=== PATIENT | male | born 1940 | race Caucasian/White ===

== ENCOUNTER 2019-07-23 12:53 | Outpatient (CLI) | payer MEDICARE, SELFPAY ==
--- NOTE | 2019-07-23 13:06 | USCV_ITS ---
Rodolfo Sethi Age: 79 Gender: M : 1940 Exam Date: 07/23/2019 13:34 Ordering Phys: Marcio Nunes MD Technologist: Madison Valenzuela Exam Location: [facility] [place] Indication: AFIB MURMUR BP: 115 / 63 HR: 72 Rhythm: Sinus Technical Quality: Adequate MEASUREMENTS (Male / Female) Normal Values 2D ECHO LV Diastolic Diameter PLAX 4.6 cm 4.2 - 5.9 / 3.9 - 5.3 cm LV Systolic Diameter PLAX 3.2 cm LV Chamber Size 3.0 cm IVS Diastolic Thickness 1.7 cm 0.6 - 1.0 / 0.6 - 0.9 cm IVS Systolic Thickness 2.2 cm LVPW Diastolic Thickness 2.2 cm 0.6 - 1.0 / 0.6 - 0.9 cm LVPW Systolic Thickness 2.3 cm RV Chamber Size 3.5 cm LVOT Diameter 2.1 cm LV Ejection Fraction 2D Teich 57.9 % LV Ejection Fraction MOD 2C 66.4 % LV Ejection Fraction 2C AL 68.7 % LA Diameter 4.3 cm LA Width 4.2 cm LA Height 6.3 cm RA Width 4.7 cm RA Height 5.0 cm Aorta at Sinotubular Diameter 3.3 cm M-MODE LV Diastolic Diameter MM 5.3 cm 4.2 - 5.9 / 3.9 - 5.3 cm LV Systolic Diameter MM 3.6 cm LV Ejection Fraction MM Teich 58.9 % IVS Diastolic Thickness MM 1.0 cm 0.6 - 1.0 / 0.6 - 0.9 cm IVS Systolic Thickness MM 1.2 cm LVPW Diastolic Thickness MM 1.1 cm 0.6 - 1.0 / 0.6 - 0.9 cm LVPW Systolic Thickness MM 1.6 cm Aortic Annulus Diameter 4.6 cm LA Ao Ratio MM 0.9 MV E Point Septal Separation 1.1 cm DOPPLER AV Peak Velocity 266.0 cm/s LVOT Peak Velocity 104.0 cm/s AV Area Cont Eq vti 1.5 cm squared AV Area Cont Eq pk 1.3 cm squared MV Area PHT 3.0 cm squared Mitral E to A Ratio 1.1 MV E' Velocity 9.0 cm/s Mitral E to MV E' Ratio 12.3 Mitral E to LV E' Lateral Ratio 10.8 Mitral E to LV E' Septal Ratio 14.4 TR Peak Velocity 285.0 cm/s TR Peak Gradient 32.4 mmHg TV Peak E Velocity 48.0 cm/s Right Atrial Pressure 3.0 mmHg Pulmonary Artery Systolic Pressu 35.5 mmHg PV Peak Velocity 96.0 cm/s RV Acceleration Time 0.1 s RV Ejection Time 0.3 s RV AcT/ET 0.4 FINDINGS Left Ventricle Normal left ventricular cavity size. Normal left ventricular systolic function. Left ventricular ejection fraction is estimated at 58 %. No regional wall motion abnormalities. Grade II/IV diastolic dysfunction, moderately elevated filling pressures. Right Ventricle The right ventricle is normal in size and function. Right Atrium The right atrium is normal in size. Left Atrium Moderately increased left atrial size. Mitral Valve Moderately thickened mitral valve. No mitral valve stenosis. No mitral valve regurgitation. Aortic Valve Severe aortic valve calcification. Moderate aortic valve stenosis, mean gradient 9.8 mmHg, ALEJANDRO 1.5 cm squared. Trace aortic valve regurgitation. Tricuspid Valve Trace tricuspid valve regurgitation. Pulmonic Valve Structurally normal pulmonic valve without significant stenosis. There is no pulmonic regurgitation. Pericardium Normal pericardium without effusion. Aorta Normal ascending aorta dimension. CONCLUSIONS 1-Normal left ventricular cavity size. Normal left ventricular systolic function. Left ventricular ejection fraction is estimated at 58 %. No regional wall motion abnormalities. Grade II/IV diastolic dysfunction, moderately elevated filling pressures. 2-Severe aortic valve calcification. Moderate aortic valve stenosis, mean gradient 9.8 mmHg, ALEJANDRO 1.5 cm squared. Trace aortic valve regurgitation. 3-Moderately increased left atrial size. 4-Pulmonary artery systolic pressure is within normal limits. 5-There is no pericardial effusion. 6-Right atrial pressure is around 5 mm of mercury. 7-There are no prior echocardiogram studies to compare. Iliana Ricci MD (Electronically Signed) Final Date: 23 July 2019 18:47 S
== END 2019-07-23 12:54 | disposition home or self-care (01) ==
LOC: RAD 12:56
PROVIDERS: Family Provider Family Medicine; Visit Provider Family Medicine
DX: I48.91 Unspecified atrial fibrillation (principal); I35.0 Nonrheumatic aortic (valve) stenosis; I51.7 Cardiomegaly; R01.1 Cardiac murmur, unspecified
CPT/HCPCS: 93306

== ENCOUNTER 2019-12-03 05:42 | Observation (INO) | payer MEDICARE, SELFPAY ==
[2019-12-03] VITALS (53 sets, daily range): BP systolic 82–128; BP diastolic 57–109; PULSE 80–151; RESP 10–33; TEMP 36.4–36.7; O2SAT 91–99; BMI 26.2
--- NOTE | 2019-12-03 05:44 | XR_ITS ---
WS: [id number] Portable AP upright chest, 12/03/2019 Clinical Data: cp Comparison: None. Findings: No nodules, masses or effusions are seen. The heart is normal. The pulmonary vascularity is not increased. No pneumonia or pneumothorax is seen. The aortic arch and descending aorta are tortuo us. Midline sternotomy sutures are present. Monitor leads are on the chest wall. XR/XR chest 1V portable [id number] Impression: Atherosclerosis.
--- NOTE | 2019-12-03 05:44 | ECG_ITS ---
[facility] Test Date: 2019-12-03 Pat Name: Rodolfo Sethi Department: Room: Gender: Male Branch Office Administrator: : 1940 Requested By: Chito Lopez Order Number: [id number] Sergey MD: Fabiola Hartmann M.D. Measurements Intervals [place] Rate: 137 P: [place]: -1 QRS: -25 QRSD: 157 T: 56 QT: 344 QTc: 520 Interpretive Statements ATRIAL FIBRILLATION WITH RAPID VENTRICULAR RESPONSE BORDERLINE LEFT AXIS DEVIATION [QRS AXIS < -20] RIGHT BUNDLE BRANCH BLOCK [120+ ms QRS DURATION, UPRIGHT V1, 40+ ms S IN I/aVL/V4/V5/V6] ST DEPRESSION, CONSIDER SUBENDOCARDIAL INJURY [0.1+ mV ST DEPRESSION] No previous ECG available for comparison Electronically Signed On 12-03-2019 18:00:25 CDT by Fabiola Hartmann M.D. [email or web address] [email or web address].BizAnytime/store/[id number] f
[2019-12-03] MEDS: aspirin 81 mg Chew Tablet 324 MG PO (05:56)
[2019-12-03 05:58] LABS: Basophils # 0.1 10^3/uL (0.0-0.1); Basophils % 0.8 %; Eosinophils # 0.6 10^3/uL (0.0-0.8); Eosinophils % 4.7 %; Hematocrit 44.3 % (42.0-52.0); Hemoglobin 14.7 g/dL (11.7-16.6); Lymphocytes # 2.7 10^3/uL (0.8-4.8); Lymphocytes % 22.7 %; Mean Corpuscular HGB Conc 33.2 g/dL (30.0-36.0); Mean Corpuscular Volume 99.3 fL (80-94); Mean Platelet Volume 9.1 fL (7.4-10.4); Monocytes # 1.1 10^3/uL (0.2-0.9); Monocytes % 9.1 %; Neutrophils % 62.4 %; Nucleated Red Blood Cells % 0 %; Platelet Count 592 10^3/cmm (130-400); Red Blood Count 4.46 10^6/uL (4.1-5.3); Red Cell Distribution Width 11.9 % (12.1-15.1)
--- NOTE | 2019-12-03 06:04 | ED_ITS ---
HPI - Chest Pain General: Chief Complaint: Chest Pain Stated Complaint: cp, weak pulse Time Seen by Provider: 12/03/19 06:00 History of Present Illness: HPI narrative: 79-year-old male presents to the emergency room with a complaint of chest discomfort and rapid heart rate. 2 weeks ago patient had a coronary artery bypass graft at [facility] in [place]. He has had history of atrial fibrillation is on Coumadin. He also has headache Rythmol for rate control. He is taking all his medications as scheduled has not run out of any medications. He has a long history of atrial fibrillation he has had several cardioversions and ablations since the last ablation he said the rate has been fairly well controlled. The chest discomfort is not anything new he says he has had multiple aches and pains in his chest since having the bypass. he woke up at midnight with this pain he did have to take some pain medications which only provided moderate relief. His A. fib became somewhat worse so he presented to the emergency room at the time of presentation he still has a right-sided chest pain heart rates in the 140s. MD complaint: chest pain and chest discomfort Pertinent past history: coronary artery disease Onset (ago): hour(s) Timing of current episode: constant Prior episodes: Yes Onset: during rest Pain location: right chest Pain radiation: right shoulder Quality: tightness Relieving factors: rest Exacerbating factors: exertion Associated symptoms: Reports dyspnea and palpitations; Deny abdominal pain, diaphoresis, fever(s), leg edema, nausea, sense of impending doom, syncope or vomiting Treatment prior to arrival: none Review of Systems Const: Denies: fever(s) or diaphoresis ENMT: Denies: throat pain, ear or mastoid pain, nasal discharge or nasal congestion Card: Reports: palpitations; Denies: syncope Resp: Reports: dyspnea GI: Denies: abdominal pain, nausea or vomiting : Denies: flank pain, dysuria, urinary frequency or urinary urgency Skin/Breast: Denies: rash or pruritus [facility] ED PFSH: Medical History Dyslipidemia Surgical History S/P ablation of atrial fibrillation Physical Exam Const: COMMON NORMALS: no acute distress GENERAL APPEARANCE: cooperative and comfortable ORIENTATION/CONSCIOUSNESS: Yes awake, Yes oriented to person, Yes oriented to place and Yes oriented to time HENMT: COMMON NORMALS: normocephalic, atraumatic and hearing grossly normal bilaterally HEAD & SCALP: normocephalic and atraumatic Resp: COMMON NORMALS: normal respiratory effort, No retractions, No use of accessory muscles and clear to auscultation bilaterally AUSCULTATION: clear to auscultation bilaterally Cardio: RATE: tachycardic RHYTHM: abnormal rhythm irregularly irregular GI: COMMON NORMALS: Soft to palpation and No hepatosplenomegaly present AUSCULTATION: Yes normoactive bowel sounds PALPATION: Yes Soft to palpation, No Tenderness to palpation present (GI), No Guarding due to palpation present (GI) and Yes No hepatosplenomegaly present Extremity: COMMON NORMALS: normal to inspection, capillary refill normal, no clubbing, cyanosis or edema, no calf tenderness and no pedal edema Neuro: SENSORIUM/ORIENTATION: Yes oriented to person, Yes oriented to place and Yes oriented to time Skin: COMMON NORMALS: no rashes or lesions noted GENERAL SKIN EXAM: no rashes or lesions noted Course Vital Signs: Vital signs: Vital Signs Temperature 97.7 F 12/04/19 10:40 Pulse Rate 74 12/04/19 10:40 Respiratory Rate 25 H 12/04/19 10:40 Blood Pressure 111/67 12/04/19 10:40 Pulse Oximetry 95 12/04/19 10:40 MDM - Chest Pain MDM Narrative: Medical decision making narrative: Rate controlled on IV Cardizem but has not converted. Patient initially asked about transferring back to [facility] we contacted his cardiothoracic surgeon there they did not feel it returning to [facility] was necessary and follow could be handled here which I agree with. Discussed with cardiology will go ahead and admit the patient and work on rate control. Lab Data: Labs: Lab Results 12/03/19 12/03/19 12/03/19 Range/Units 05:50 05:50 05:50 WBC 12.0 H (4.0-10.0) 10^3/ uL RBC 4.46 (4.1-5.3) 10^6/u L Hgb 14.7 (11.7-16.6) g/dL Hct 44.3 (42.0-52.0) % MCV 99.3 H (80-94) fL MCH 33.0 (28.0-34.0) pg MCHC 33.2 (30.0-36.0) g/dL RDW 11.9 L (12.1-15.1) % Plt Count 592 H (130-400) 10^3/c mm MPV 9.1 (7.4-10.4) fL Neut % (Auto) 62.4 % Lymph % (Auto) 22.7 % Coles % (Auto) 9.1 % Eos % (Auto) 4.7 % Baso % (Auto) 0.8 % Neut # (Auto) 7.50 (1.8-7.7) 10^3/u L Lymph # (Auto) 2.7 (0.8-4.8) 10^3/u L Coles # (Auto) 1.1 H (0.2-0.9) 10^3/u L Eos # (Auto) 0.6 (0.0-0.8) 10^3/u L Baso # (Auto) 0.1 (0.0-0.1) 10^3/u L Nucleated RBC % (a uto) 0 % Nucleated RBCs # 0.0 /100WBC PT 25.90 H (12.1-14.9) SECO NDS INR 2.27 H (0.8-1.2) Sodium 135 L (136-145) mmol/L Potassium 4.1 (3.5-5.1) mmol/L Chloride 99 (98-107) mmol/L Carbon Dioxide 23 (22-29) mmol/L Anion Gap 17.1 (5-19) BUN 21 (8-23) mg/dL Creatinine 1.1 (0.7-1.2) mg/dL GFR Calculation Not Reportable Glucose 136 H (65-115) mg/dL Calculated Osmolal ity 285 (285-295) mOsm/k g Calcium 10.0 (8.5-10.5) mg/dL Total Bilirubin 0.5 (0.15-1.2) mg/dL AST 18 (0-40) U/L ALT 9 (0-41) U/L Alkaline Phosphata se 107 (40-130) IU/L Troponin T Baselin e (0-15) ng/L Troponin T 120 Min [place] (0-15) ng/L Delta Troponin T (0-10) ABS# Total Protein 7.0 (6.6-8.7) g/dL Albumin 3.7 (3.5-5.2) g/dL Globulin 3.3 (1.3-4.6) g/dL 12/03/19 12/03/19 Range/Units 05:50 08:08 WBC (4.0-10.0) 10^3/ uL RBC (4.1-5.3) 10^6/u L Hgb (11.7-16.6) g/dL Hct (42.0-52.0) % MCV (80-94) fL MCH (28.0-34.0) pg MCHC (30.0-36.0) g/dL RDW (12.1-15.1) % Plt Count (130-400) 10^3/c mm MPV (7.4-10.4) fL Neut % (Auto) % Lymph % (Auto) % Coles % (Auto) % Eos % (Auto) % Baso % (Auto) % Neut # (Auto) (1.8-7.7) 10^3/u L Lymph # (Auto) (0.8-4.8) 10^3/u L Coles # (Auto) (0.2-0.9) 10^3/u L Eos # (Auto) (0.0-0.8) 10^3/u L Baso # (Auto) (0.0-0.1) 10^3/u L Nucleated RBC % (a uto) % Nucleated RBCs # /100WBC PT (12.1-14.9) SECO NDS INR (0.8-1.2) Sodium (136-145) mmol/L Potassium (3.5-5.1) mmol/L Chloride (98-107) mmol/L Carbon Dioxide (22-29) mmol/L Anion Gap (5-19) BUN (8-23) mg/dL Creatinine (0.7-1.2) mg/dL GFR Calculation Glucose (65-115) mg/dL Calculated Osmolal ity (285-295) mOsm/k g Calcium (8.5-10.5) mg/dL Total Bilirubin (0.15-1.2) mg/dL AST (0-40) U/L ALT (0-41) U/L Alkaline Phosphata se (40-130) IU/L Troponin T Baselin e 27 H (0-15) ng/L Troponin T 120 Min [place] 36.21 H (0-15) ng/L Delta Troponin T 9.21 (0-10) ABS# Total Protein (6.6-8.7) g/dL Albumin (3.5-5.2) g/dL Globulin (1.3-4.6) g/dL Discharge Plan Discharge Patient Disposition: Admitted As Inpatient Admit Provider: Matty Salcedo Clinical Impression: Atrial fibrillation with rapid ventricular response, Atherosclerotic heart disease, Dyslipidemia, Chronic episodic atrial fibrillation Condition: Stable Discharge Date/Time: 12/03/19 12:25 Coding Level of Care Code ED Irrigation Pump Installer for Elizabeth Fwd Exam Detailed
[2019-12-03 06:12] LABS: INR 2.27 (0.8-1.2)
[2019-12-03 06:15] LABS: Alanine Aminotransferase 9 U/L (0-41); Albumin Level 3.7 g/dL (3.5-5.2); Alkaline Phosphatase 107 IU/L (40-130); Anion Gap 17.1 (5-19); Aspartate Amino Transferase 18 U/L (0-40); Blood Urea Nitrogen 21 mg/dL (8-23); Carbon Dioxide 23 mmol/L (22-29); Chloride 99 mmol/L (98-107); Creatinine Clr Calc Pharmacy 67.2739; Globulin 3.3 g/dL (1.3-4.6); Glucose 136 mg/dL (65-115); Osmolality Calculated 285 mOsm/kg (285-295); Potassium 4.1 mmol/L (3.5-5.1); Sodium 135 mmol/L (136-145); Total Bilirubin 0.5 mg/dL (0.15-1.2)
[2019-12-03 06:18] LABS: Troponin(5th) Baseline 27 ng/L (0-15)
[2019-12-03] MEDS: sodium chloride 0.9% 500 ML 999 ML IV ×2 (06:20→08:47)
--- NOTE | 2019-12-03 07:44 | ECG_ITS ---
[facility] Test Date: 2019-12-03 Pat Name: Rodolfo Sethi Department: Room: Gender: Male Chief Passenger Ship Steward/Stewardess: : 1940 Requested By: Chito Lopez Order Number: [id number] Sergey MD: Fabiola Hartmann M.D. Measurements Intervals [place] Rate: 119 P: ID: -1 QRS: -5 QRSD: 157 T: 29 QT: 369 QTc: 520 Interpretive Statements ATRIAL FIBRILLATION WITH RAPID VENTRICULAR RESPONSE RIGHT BUNDLE BRANCH BLOCK [120+ ms QRS DURATION, UPRIGHT V1, 40+ ms S IN I/aVL/V4/V5/V6] Compared to ECG 12/03/2019 05:44:54 ST (T wave) deviation no longer present Electronically Signed On 12-03-2019 18:18:16 CDT by Fabiola Hartmann M.D. [id number]
[2019-12-03] MEDS: esmolol drip 2,500 MG/250 ML PREMIX 28.6 MG IV (08:47)
[2019-12-03 08:55] LABS: Troponin 5 2HR 36.21 ng/L (0-15); Troponin 5 2HR Delta 9.21 ABS# (0-10)
--- NOTE | 2019-12-03 10:12 | ECG_ITS ---
[facility] Test Date: 2019-12-03 Pat Name: Rodolfo Sethi Department: Room: Gender: Male Microbiology Technician: : 1940 Requested By: Renzo Bates Order Number: [id number] Sergey MD: Fabiola Hartmann M.D. Measurements Intervals [place] Rate: 99 P: NC: -1 QRS: 12 QRSD: 158 T: 52 QT: 339 QTc: 436 Interpretive Statements ATRIAL FIBRILLATION RIGHT BUNDLE BRANCH BLOCK [120+ ms QRS DURATION, UPRIGHT V1, 40+ ms S IN I/aVL/V4/V5/V6] Compared to ECG 12/03/2019 08:03:11 No significant changes Electronically Signed On 12-03-2019 17:58:27 CDT by Fabiola Hartmann M.D. [id number] f
--- NOTE | 2019-12-03 11:06 | PC.NURSE ---
pt continues to be more hypotensive (82/58). ED provider notified. Esmolol drip off at 1100
--- NOTE | 2019-12-03 11:44 | ECG_ITS ---
[facility] Test Date: 2019-12-03 Pat Name: Rodolfo Sethi Department: Room: 101 Gender: Male Media Relations Intern: : 1940 Requested By: Chito Lopez Order Number: [id number] Sergey MD: Fabiola Hartmann M.D. Measurements Intervals [place] Rate: 124 P: [place]: -1 QRS: -11 QRSD: 152 T: 57 QT: 359 QTc: 516 Interpretive Statements ATRIAL FIBRILLATION WITH RAPID VENTRICULAR RESPONSE RIGHT BUNDLE BRANCH BLOCK [120+ ms QRS DURATION, UPRIGHT V1, 40+ ms S IN I/aVL/V4/V5/V6] Compared to ECG 12/03/2019 09:14:33 No significant changes Electronically Signed On 12-03-2019 18:10:28 CDT by Fabiola Hartmann M.D. [id number]
[2019-12-03] MEDS: digoxin 250 mcg/ml INJ 2 mL IVP ×2 (12:47→14:26)
--- NOTE | 2019-12-03 12:47 | PC.NURSE ---
FROM ER Afib w/rvr on 130s to 140s. Pt stated he has chest discomfort, dizziness when standing. Dr. Salcedo notified. Orders to give 250 mcg of IVP Digoxin now.
--- NOTE | 2019-12-03 12:48 | PC.NURSE ---
Pt verified that he took all his home meds Pt said, I took all the meds this morning. I asked him if he took his coumadin. Pt stated, I took my coumadin this morning too. Pt verified that he takes rhythmol 150 mg TID. Med rec verified.
--- NOTE | 2019-12-03 13:00 | PC.NURSE ---
From Er Pt is on afib w/rvr on 130s-140s. Pt reports of Chest pressure and dizziness when standing. BP- 90s to 100s systolic, normal MAP >65. DR. servin notified.
--- NOTE | 2019-12-03 13:08 | PM.HP ---
Providers/Chief Complaint Admitting Physician: Matty Salcedo MD Chief Complaint: cp, weak pulse History of Present Illness Rodolfo Sethi is a 79 year old male, is admitted to the hospital through the emergency room, where he presented with complaints of chest discomfort and palpitations since nursing technician today. Has a history of chronic intermittent atrial fibrillation. He had multiple cardioversions in the past. Approximately 4 years ago, he had second ablation. Since then, patient has not had any recurrence of atrial fibrillation up until this morning. According the patient, he had a two-vessel coronary artery bypass surgery in [facility] by Dr. Bolaños. Details of the surgery is not available at this time. Postoperatively patient was placed on propafenone and warfarin. Whether he had any atrial fibrillation in the hospital or not is not clear at this time. Per the patient, whenever he had the atrial fibrillation with rapid ventricular rate, he become dizzy and short of breath. He also had some discomfort in the chest. He has no fever, chills or cough. He was Covid tested negative few weeks ago prior to the open heart surgery. He has a history of dyslipidemia. No history for any hypertension or diabetes. According the patient, the first episode of atrial fibrillation happened after the PCI. He had a multiple PCI's in the past. He has no history for any CVA or peripheral arterial disease. No history for kidney disease, liver disease or bleeding disorders. He has a history of prostate cancer. No other relevant past medical history. Patient was found to be in atrial fibrillation with rapid ventricular rate in the emergency room. He was started on IV Cardizem. Apparently there was no response. Then he was started on IV esmolol. His blood pressure dropped down into the 80s. For that reason, the aspirin was discontinued. Review of Systems Narrative: CONSTITUTIONAL: No fever or chills. Feeling of weakness and shortness of breath since this morning as mentioned above. EYES: No blurring of vision or other visual disturbances lately. ENT: No hoarseness of voice, auditory disturbances or sore throat. CARDIOVASCULAR: As mentioned above. RESPIRATORY: Remote history of smoking abuse which he quit more than 30 years ago. GASTROINTESTINAL: No hematemesis or melena. GENITOURINARY: No dysuria or hematuria. INTEGUMENTARY: No skin rashes or history of skin cancer. NEURO: No transient ischemic attacks or amaurosis. PSYCHIATRIC: No history of psychosis or major depression. HEMATOLOGIC: No bleeding disorders or significant anemia. ENDOCRINE: No history of polyuria or polydipsia. MUSCULOSKELETAL: No recent joint pain or swelling. ALLERGY/IMMUNOLOGY: As mentioned above. Medications/Allergies Home Medications Medication Instructions Recorded Confirmed Last Taken Type aspirin 81 mg PO DAILY 12/03/19 12/03/19 12/03/19 History atorvastatin 10 mg PO DAILY 12/03/19 12/03/19 12/02/19 History furosemide 20 mg PO DAILY 12/03/19 12/03/19 12/02/19 History potassium chloride 20 meq PO DAILY 12/03/19 12/03/19 12/02/19 History propafenone 150 mg PO DAILY 12/03/19 12/03/19 12/03/19 History warfarin See Rx Instructions .ROUTE .COMPLEX 12/03/19 12/03/19 12/03/19 History Allergies Allergy/AdvReac Type Severity Reaction Status Date / Time No Known Allergies Allergy Verified 12/03/19 05:43 PFSH Acute PFSH: Medical History Dyslipidemia Surgical History S/P ablation of atrial fibrillation Vitals/I&O/Wt Last Vital Signs Temp 97.9 F 12/03/19 05:43 Pulse 118 H 12/03/19 11:00 Resp 23 H 12/03/19 11:00 BP 82/58 12/03/19 11:00 Pulse Ox 91 12/03/19 11:00 12/02/19 12/03/19 12/03/19 22:59 06:59 14:59 Intake Total 503.500 / 503.500 594.78 / 594.78 Balance 503.500 / 503.500 594.78 / 594.78 Weight last 48 hrs Weight 210 lb Physical Exam Narrative: EXAM NARRATIVE: GENERAL: The patient is alert and oriented times three. Not in any acute distress. HEENT: Mild pallor. No icterus or lymphadenopathy. The pupils are reactant to light. Oral cavity: There are no mucous membrane lesions. Funduscopic examination: NECK: Trachea appears to be central. No masses noted. No JVD or thyromegaly appreciated. No carotid bruit. RESPIRATORY: Chest is symmetrical. The sternotomy seems to be healing well. No intercostals muscle retraction or any accessory muscle activation. There is no chest wall tenderness. Breath sounds are heard bilaterally. No rales or rhonchi heard. No evidence of any consolidation. BREASTS: Deferred. HEART: The PMI could not be palpated. No other palpable precordial events. First heart sound is variable. Second heart sound is normal. No S3. Short systolic murmur at the base of the heart. No diastolic murmurs. No pericardial rub. ABDOMEN: No vessel pulsations or distention. No tenderness. No organomegaly appreciated. No abdominal bruit. Bowel sounds are normally heard. : Deferred. RECTAL: Deferred. LYMPHATIC: No lymphadenopathy noted in the neck or groin. EXTREMITIES: No significant edema or cyanosis. Peripheral pulses are palpable in fairly good volume and amplitude. MUSCULOSKELETAL: No acute joint deformities or swelling. SKIN: There are no significant scars or skin rash noted. NEUROPSYCHIATRIC: The patient is alert and oriented x3. Appears to be in a good mood. The higher functions are grossly within normal limits. No tremors or rigidity noted. Data : 12/03/19 05:50 12/03/19 05:50 A&P Assessment and plan (1) Chronic episodic atrial fibrillation: Seems to have atrial fibrillation rapid ventricular rate and asymptomatic. For some reason, he has been taking the propafenone 150 mg only once a day. He may go up to 3 times a day dose. Since he has a hypotensive episode with esmolol, I may give him IV digoxin for rate control. I will be trying to get all the medical records from [place]. If he has no significant improvement of the arrhythmia with the medication, may consider electrical cardioversion. Status: Acute (2) Dyslipidemia: We will continue the current medications. Status: Acute (3) Atherosclerotic heart disease of [place] coronary artery with other forms of angina pectoris: Most likely the chest discomfort is from the atrial fibrillation. I will try to get the records from the [facility]. We may do an echocardiogram here in this hospital to evaluate the LV function and rule out any other pathology. Status: Acute Additional A&P Information History of multiple PCI's. History of multiple electrical cardioversions. History of RF ablation x2, most recent one was 4 years ago. After reviewing the above and also based on the patient's clinical progress, further management decisions will be made. Attestations Medical Necessity Statement*: Patient is admitted for observation. He may require at least 2 midnight stay, for further evaluation management Coding Level of Care Code Acute Assistant Federal Public Defender for Elizabeth Fwd Diagnoses Chronic episodic atrial fibrillation I48.20 Dyslipidemia E78.5 Atherosclerotic heart disease of [place] coronary artery with other forms of angina pectoris I25.118
[2019-12-03 13:19] LABS: Troponin 5 6HR 36.01 ng/L (0-15); Troponin 5 6HR Delta 9.01 ng/L (0-12)
--- NOTE | 2019-12-03 14:00 | PC.NURSE ---
HR-120s to [address]s [address]IB [address] Dr[address] Salcedo due to HR still in afib w/rvr not responding to Digoxin. Received order to repeat another 250 mcg of Digoxin IVP now once.
[2019-12-03] MEDS: propafenone 150 mg Tablet PO (15:42)
--- NOTE | 2019-12-03 18:00 | P.ANESASSM_ITS ---
Pre-Anesthetic Assessment Pre-Anesthetic Assessment: Height/Weight: Height 1.91 m Weight 95.254 kg Temp Pulse Resp BP Pulse Ox 97.5 F L 122 H 16 107/72 95 12/03/19 15:11 12/03/19 15:11 12/03/19 15:11 12/03/19 15:11 12/03/19 15:11 Proposed Procedure: cardioversion Familial anesthetic complications: denies, Was Beta Sharron taken within 24 hours: N/A Last Intake: 04:30 Social: Social History: No alcohol and No tobacco Exam: Pre-Anes Outpt Exam: alert and oriented x 3 Airway: Submandibular: WNL Cervical ROM: WNL MP: 2 Pulmonary: Pulmonary: SOB (dizziness ) and None reported CV/HEM: CV/HEM: Afib, CAD, HTN (low bp ) and OK Comments: stent 20 years ago CABG 2 weeks ago 8 cardioversions : : None reported Hepatic: Hepatic: None reported GI: GI: None reported Metabolic: Metabolic: None reported Musc/skel: Musc/skel: Neuropsych: Neuropsych: None reported Anesthetic Plan: ASA status: 3E Anesthesia: Anesthesia Evaluation and MAC Meds/Allergies Current Medications: Current Medications Generic Name Dose Route Start Last Admin Trade Name Freq PRN Reason Stop Dose Admin Sodium Chloride 500 mls @ 999 mls /hr 12/03/19 06:15 12/03/19 10:36 Sodium Chloride 0.9% IV Infused .Q31M DELANEY Infusion Esmolol HCl 2,500 mg in 250 m ls @ 0 mls/hr 12/03/19 08:15 12/03/19 11:05 Brevibloc Drip IV 0 mcg/kg/min .Q0M DELANEY 0 mls/hr Titration Protocol Per Protocol PFSH Anesthesia PFSH: Medical History Dyslipidemia Surgical History S/P ablation of atrial fibrillation Data Anesthesia CBC & Chem 7: 12/03/19 05:50 12/03/19 05:50 Other Labs: Laboratory Results - last 48 hr 12/03/19 12/03/19 12/03/19 05:50 05:50 05:50 WBC 12.0 H RBC 4.46 Hgb 14.7 Hct 44.3 MCV 99.3 H MCH 33.0 MCHC 33.2 RDW 11.9 L Plt Count 592 H MPV 9.1 Neut % (Auto) 62.4 Lymph % (Auto) 22.7 Woodson % (Auto) 9.1 Eos % (Auto) 4.7 Baso % (Auto) 0.8 Neut # (Auto) 7.50 Lymph # (Auto) 2.7 Woodson # (Auto) 1.1 H Eos # (Auto) 0.6 Baso # (Auto) 0.1 Nucleated RBC % (auto) 0 Nucleated RBCs # 0.0 PT 25.90 H INR 2.27 H Sodium 135 L Potassium 4.1 Chloride 99 Carbon Dioxide 23 Anion Gap 17.1 BUN 21 Creatinine 1.1 GFR Calculation Not Reportable Glucose 136 H Calculated Osmolality 285 Calcium 10.0 Total Bilirubin 0.5 AST 18 ALT 9 Alkaline Phosphatase 107 Troponin T Baseline Troponin T 120 Minute Delta Troponin T Troponin T Hi Sens 6Hr Troponin T Hi Sens 6Hr Delta Total Protein 7.0 Albumin 3.7 Globulin 3.3 12/03/19 12/03/19 12/03/19 05:50 08:08 12:45 WBC RBC Hgb Hct MCV MCH MCHC RDW Plt Count MPV Neut % (Auto) Lymph % (Auto) Woodson % (Auto) Eos % (Auto) Baso % (Auto) Neut # (Auto) Lymph # (Auto) Woodson # (Auto) Eos # (Auto) Baso # (Auto) Nucleated RBC % (auto) Nucleated RBCs # PT INR Sodium Potassium Chloride Carbon Dioxide Anion Gap BUN Creatinine GFR Calculation Glucose Calculated Osmolality Calcium Total Bilirubin AST ALT Alkaline Phosphatase Troponin T Baseline 27 H Troponin T 120 Minute 36.21 H Delta Troponin T 9.21 Troponin T Hi Sens 6Hr 36.01 H Troponin T Hi Sens 6Hr Delta 9.01 Total Protein Albumin Globulin Cardiac Studies: No Data to Display
--- NOTE | 2019-12-03 18:14 | PC.NURSE ---
Synchronized cardioversion 1654-pt signed informed consent 1800-Time out, MECHANICAL MAINTENANCE FOREMAN at bedside. propofol given pre-procedure. Airway mgt monitored, VS monitored. 1813-Cardioversion done w/ 150 J x1 shock. Conversion to SR w/HR- 89-90s. EKG post procedure taken. Pt monitored. Received verbal orders read back from Dr. Salcedo to start pt on Betapace 80 mg BID, IVP lasix 20 mg one time.
--- NOTE | 2019-12-03 18:14 | ECG_ITS ---
[facility] Test Date: 2019-12-03 Pat Name: Rodolfo Sethi Department: Room: 101 Gender: Male Shook Splicer: : 1940 Requested By: Matty Salcedo Order Number: [id number] Sergey MD: Fabiola Hartmann M.D. Measurements Intervals [place] Rate: 98 P: [place]: -1 QRS: -4 QRSD: 159 T: 35 QT: 362 QTc: 462 Interpretive Statements SINUS TACHYCARDIA RIGHT BUNDLE BRANCH BLOCK Compared to ECG 12/03/2019 14:12:30 Ventricular premature complex(es) now present Aberrant conduction of supraventricular beat(s) now present Atrial fibrillation no longer present Electronically Signed On 12-03-2019 23:26:44 CDT by Fabiola Hartmann M.D. [id number]
--- NOTE | 2019-12-03 18:27 | ANE.PACU2 ---
Inpatient post-anesthesia follow up: Vital signs: Temperature 97.5 F Pulse Rate [Monito r] 140 Pulse Rate 122 Respiratory Rate 16 Blood Pressure [Le ft Arm] 101/74 Blood Pressure 107/72 Pulse Oximetry 95 Oxygen Delivery Me thod Room Air,Nasal Can nula Oxygen Flow Rate 2 Fraction of Inspir ed Oxygen Hydration adequate: Yes Nausea and vomiting: No Pain level: 0/10 Mental status: Baseline
[2019-12-03] MEDS: FUROsemide 10 mg/mL SDV 4mL 20 MG IVP (19:23)
[2019-12-03] MEDS: sotalol 80 mg Tablet PO (20:11)
--- NOTE | 2019-12-03 20:19 | PM.OP ---
Operative Report Date of procedure: December 03, 2019 Procedure: Electrical cardioversion report Preprocedure diagnoses: Atrial fibrillation/hypotension Brief history: This is an 79-year-old white female with history of atrial fibrillation, multiple electrical cardioversion and radiofrequency ablation, presented with recurrence of atrial fibrillation with rapid ventricular rate. He developed hypotension with esmolol. He was given IV digoxin which he did not help to regulate the heartbeat. He continued to be in atrial fibrillation with rapid ventricular rate. He also started dropping the systolic blood pressure into the 80s. For further management of his condition, electrical cardioversion was recommended. Location of the procedure: Room #101 Electrode application: Anteroposterior chest Electrical energy applied: 150 J of biphasic current Number of shocks: 1 shock Final rhythm: Normal sinus rhythm Final blood pressure: 102/58 Complications: None Recommendation(s): Propafenone was discontinued. It was decided to start the patient on Betapace 80 mg p.o. twice daily. We will be watching him on telemetry for the next 48 to 72 hours. Daily EKGs ordered.
--- NOTE | 2019-12-03 21:09 | PC.NURSE ---
Pt home med rec Pt stated that he takes coumadin M,W,F 1 and half tablet. Then 1 tab the other days. Rx bottle prescribed by Dr. Nunes reads Coumadin 2 mg, take 1 tab by mouth two times daily. Lasix reads on the Rx bottle from [facility] doctor Ryne Bolaños-take 2 tablets (40mg) 2 times daily for 14 days. Hydrocodone 5-325 mg q4h PRN for pain. Dr. Salcedo notified. stated we will follow-what the pt states he takes at home with his coumadin dosing.
[2019-12-04] VITALS (7 sets, daily range): BP systolic 111–139; BP diastolic 67–86; PULSE 72–83; RESP 21–28; TEMP 36.3–36.9; O2SAT 93–96
[2019-12-04 05:33] LABS: Basophils # 0.1 10^3/uL (0.0-0.1); Basophils % 0.6 %; Eosinophils # 0.4 10^3/uL (0.0-0.8); Eosinophils % 4.4 %; Hematocrit 39.6 % (42.0-52.0); Hemoglobin 12.7 g/dL (11.7-16.6); Lymphocytes # 1.6 10^3/uL (0.8-4.8); Lymphocytes % 18.6 %; Mean Corpuscular HGB Conc 32.1 g/dL (30.0-36.0); Mean Corpuscular Hemoglobin 32.7 pg (28.0-34.0); Mean Corpuscular Volume 102.1 fL (80-94); Mean Platelet Volume 9.5 fL (7.4-10.4); Monocytes # 0.9 10^3/uL (0.2-0.9); Monocytes % 9.8 %; Neutrophils # 5.73 10^3/uL (1.8-7.7); Neutrophils % 66.4 %; Nucleated Red Blood Cells % 0 %; Platelet Count 464 10^3/cmm (130-400); Red Blood Count 3.88 10^6/uL (4.1-5.3); Red Cell Distribution Width 12.1 % (12.1-15.1); White Blood Count 8.6 10^3/uL (4.0-10.0)
[2019-12-04 05:48] LABS: Partial Thromboplastin Time 41.5 SECONDS (23.9-36.7)
[2019-12-04 05:59] LABS: Anion Gap 11.2 (5-19); Blood Urea Nitrogen 21 mg/dL (8-23); Calcium 9.3 mg/dL (8.5-10.5); Carbon Dioxide 27 mmol/L (22-29); Chloride 106 mmol/L (98-107); Glucose 104 mg/dL (65-115); Osmolality Calculated 293 mOsm/kg (285-295); Potassium 4.2 mmol/L (3.5-5.1); Sodium 140 mmol/L (136-145)
--- NOTE | 2019-12-04 06:34 | PC.NURSE ---
PT RESTING IN BED. PT DENIES PAIN AT THIS TIME. PT MAINTAINED A NORMAL SINUS RHYTHM ALL NIGHT. WILL CONTINUE TO MONITOR.
[2019-12-04] MEDS: sotalol 80 mg Tablet PO ×2 (08:06→20:41)
[2019-12-04] MEDS: potassium chloride ER 10 mEq Tablet 20 MEQ PO (08:06)
[2019-12-04] MEDS: FUROsemide 20 mg Tablet PO (08:07)
[2019-12-04] MEDS: aspirin 81 mg Chew Tablet PO (08:07)
[2019-12-04] MEDS: atorvastatin 40 mg Tablet 10 MG PO (08:07)
--- NOTE | 2019-12-04 10:00 | ECG_ITS ---
[facility] Test Date: 2019-12-04 Pat Name: Rodolfo Sethi Department: Room: 101 Gender: Male Console Attendant: : 1940 Requested By: Matty Salcedo Order Number: [id number] Sergey MD: Matty Salcedo M.D. Measurements Intervals [place] Rate: 73 P: 73 [place]: 159 QRS: 12 QRSD: 108 T: 112 QT: 396 QTc: 437 Interpretive Statements SINUS RHYTHM INCOMPLETE RIGHT BUNDLE BRANCH BLOCK [90+ ms QRS DURATION, TERMINAL R IN V1/V2, 40+ ms S IN I/aVL/V4/V5/V6] MODERATE T-WAVE ABNORMALITY, CONSIDER ANTERIOR ISCHEMIA [-0.1+ mV T WAVE IN V3/V4] Compared to ECG 12/03/2019 18:19:35 Incomplete right bundle-branch block now present T-wave abnormality now present Possible ischemia now present Sinus tachycardia no longer present Right bundle-branch block no longer present Electronically Signed On 12-04-2019 18:35:54 CDT by Matty Salcedo M.D. [id number]
--- NOTE | 2019-12-04 11:06 | PM.PN ---
Subjective Subjective: Interval history: The patient is doing okay. He had a cardioversion yesterday. He was cardioverted with 150 J of biphasic current into sinus rhythm. He is stays in the sinus rhythm since then. He was started on Betapace 80 mg p.o. twice daily last evening. So far he has been tolerating the medication well. The EKG this morning showed a normal QTC. Denies any other specific complaints at this time. Medications: Reviewed: Yes Medication Review Details: Current Medications Aspirin (Aspirin Chewable) 81 mg PO DAILY [facility] Last Admin: 12/04/19 08:07 Dose: 81 mg Documented by: Atorvastatin Calcium (Lipitor) 10 mg PO DAILY [facility] Last Admin: 12/04/19 08:07 Dose: 10 mg Documented by: Furosemide (Lasix) 20 mg PO DAILY [facility] Last Admin: 12/04/19 08:07 Dose: 20 mg Documented by: Ondansetron HCl (Zofran) 4 mg IVP Q6H PRN PRN Reason: NAUSEA AND VOMITING Potassium Chloride (Klor-Con 10) 20 meq PO DAILY [facility] Last Admin: 12/04/19 08:06 Dose: 20 meq Documented by: Sotalol HCl (Betapace) 80 mg PO BID@0900,2100 [facility] Last Admin: 12/04/19 08:06 Dose: 80 mg Documented by: Warfarin Sodium (Coumadin) 3 mg PO MoTuWe [facility] Warfarin Sodium (Coumadin) 2 mg PO SuTFrSa [facility] Vitals/I&O/Wt Last Vital Signs Temp 97.7 F 12/04/19 10:40 Pulse 74 12/04/19 10:40 Resp 25 H 12/04/19 10:40 BP 111/67 12/04/19 10:40 Pulse Ox 95 12/04/19 10:40 12/03/19 12/04/19 12/04/19 22:59 06:59 14:59 Intake Total 480 / 1074.78 240 / 240 Output Total 500 / 500 Balance -500 / 94.78 480 / 574.78 240 / 240 Weight last 48 hrs Weight 210 lb Physical Exam Narrative: EXAM NARRATIVE: GENERAL: The patient is alert and oriented times three. Not in any acute distress. HEENT: Mild pallor. No icterus or lymphadenopathy. NECK: Trachea appears to be central. No masses noted. No JVD or thyromegaly appreciated. No carotid bruit. RESPIRATORY: Chest is symmetrical. The sternotomy seems to be healing well. No intercostals muscle retraction or any accessory muscle activation. There is no chest wall tenderness. Breath sounds are heard bilaterally. No rales or rhonchi heard. No evidence of any consolidation. BREASTS: Deferred. HEART: The PMI could not be palpated. No other palpable precordial events. First heart sound is variable. Second heart sound is normal. No S3. Short systolic murmur at the base of the heart. No diastolic murmurs. No pericardial rub. ABDOMEN: No vessel pulsations or distention. No tenderness. No organomegaly appreciated. No abdominal bruit. Bowel sounds are normally heard. : Deferred. RECTAL: Deferred. LYMPHATIC: No lymphadenopathy noted in the neck or groin. EXTREMITIES: No significant edema or cyanosis. Peripheral pulses are palpable in fairly good volume and amplitude. MUSCULOSKELETAL: No acute joint deformities or swelling. SKIN: There are no significant scars or skin rash noted. NEUROPSYCHIATRIC: The patient is alert and oriented x3. Appears to be in a good mood. The higher functions are grossly within normal limits. No tremors or rigidity noted. Data : 12/04/19 04:56 12/04/19 04:56 EKG 2: My Interpretation: The EKG showed normal sinus rhythm with incomplete right bundle branch block pattern. Diffuse nonspecific ST-T changes. QTC of 437. A&P Assessment and plan (1) Chronic episodic atrial fibrillation: The propafenone was discontinued. Patient was started on Betapace 80 mg p.o. twice daily. So far he is tolerating the medication well. We will continue on the current medication. Repeat EKG in the morning. Status: Acute (2) Dyslipidemia: We will continue the current medications. Status: Acute (3) Atherosclerotic heart disease of [place] coronary artery with other forms of angina pectoris: Currently the patient has no chest pain. Vital signs remained stable. No new arrhythmias. Status: Acute Additional A&P Information History of multiple PCI's. History of multiple electrical cardioversions. History of RF ablation x2, most recent one was 4 years ago. Attestations Medical Necessity Statement*: Because of the high risk medication, patient needs to be closely monitored on the telemetry for a total of 48 to 72 hours Coding Level of Care Code Acute Cuff Setter Overlock for Chg Fwd Diagnoses Chronic episodic atrial fibrillation I48.20 Dyslipidemia E78.5 Atherosclerotic heart disease of [place] coronary artery with other forms of angina pectoris I25.118
--- NOTE | 2019-12-04 13:48 | USCV_ITS ---
Rodolfo Sethi Age: 79 Gender: M : 1940 Exam Date: 12/03/2019 15:01 Ordering Phys: Matty Salcedo MD ([email or web address]) Technologist: Rios Reis [place]am [place] [facility] [place]: Atrial fibrillation, hypotension BP: / HR: Rhythm: Sinus Technical Quality: Technically difficult study MEASUREMENTS (Male / Female) Normal Values 2D ECHO LV Diastolic Diameter PLAX 3.2 cm 4.2 - 5.9 / 3.9 - 5.3 cm LV Systolic Diameter PLAX 2.1 cm LV Chamber Size 3.6 cm IVS Diastolic Thickness 1.7 cm 0.6 - 1.0 / 0.6 - 0.9 cm IVS Systolic Thickness 1.5 cm LVPW Diastolic Thickness 1.1 cm 0.6 - 1.0 / 0.6 - 0.9 cm LVPW Systolic Thickness 1.5 cm RV Chamber Size 3.6 cm LVOT Diameter 2.1 cm LV Ejection Fraction 2D Teich 66.6 % LA Diameter 4.7 cm LA Width 4.0 cm LA Height 4.7 cm RA Width 2.9 cm RA Height 5.0 cm Aorta at Sinotubular Diameter 3.8 cm M-MODE LV Diastolic Diameter MM 4.6 cm 4.2 - 5.9 / 3.9 - 5.3 cm LV Systolic Diameter MM 2.8 cm LV Ejection Fraction MM Teich 68.9 % IVS Diastolic Thickness MM 1.3 cm 0.6 - 1.0 / 0.6 - 0.9 cm IVS Systolic Thickness MM 1.5 cm LVPW Diastolic Thickness MM 1.4 cm 0.6 - 1.0 / 0.6 - 0.9 cm LVPW Systolic Thickness MM 1.8 cm RV Diastolic Diameter MM 2.5 cm Aortic Annulus Diameter 4.3 cm LA Ao Ratio MM 1.2 MV E Point Septal Separation 0.8 cm DOPPLER AV Peak Velocity 262.6 cm/s LVOT Peak Velocity 70.0 cm/s AV Area Cont Eq vti 1.2 cm squared AV Area Cont Eq pk 1.0 cm squared MV Area PHT 3.9 cm squared Mitral E to A Ratio 1.5 MV E' Velocity 45.0 cm/s Mitral E to MV E' Ratio 8.6 Mitral E to LV E' Lateral Ratio 7.0 Mitral E to LV E' Septal Ratio 11.1 TR Peak Velocity 233.3 cm/s TR Peak Gradient 21.8 mmHg TV Peak E Velocity 63.0 cm/s Right Atrial Pressure 3.0 mmHg Pulmonary Artery Systolic Pressu 24.8 mmHg PV Peak Velocity 60.0 cm/s RV Acceleration Time 0.1 s RV Ejection Time 0.2 s RV AcT/ET 0.4 FINDINGS Left Ventricle Normal left ventricular size and systolic function, EF 60%. Tethery movements of the basal and mid septum possibly related to conduction abnormalities/postsurgical changes Right Ventricle Mildly dilated right ventricle with a slightly diminished ejection fraction Right Atrium Mildly increased right atrial size. Left Atrium Moderately increased left atrial size. Mitral Valve Thickened mitral valve. Aortic Valve Thickened aortic valve. Mild to moderate aortic valve stenosis with a peak velocity 2.62 m/s. Valve area was calculated to be 1.2 cm squared with a peak gradient of 34 and a mean gradient of 18 mmHg Tricuspid Valve Mild tricuspid valve regurgitation. Pulmonic Valve Pulmonic valve not well visualized. Pericardium No pericardial effusion. Aorta Normal aortic annulus size. CONCLUSIONS Normal left ventricular size and systolic function, EF 60%. Tethery movements of the basal and mid septum possibly related to conduction abnormalities/postsurgical changes. Moderately increased left atrial size. Mildly dilated right ventricle with a slightly diminished ejection fraction. Mild to moderate aortic valve stenosis with a peak velocity 2.62 m/s. Valve area was calculated to be 1.2 cm squared with a peak gradient of 34 and a mean gradient of 18 mmHg. Thickened mitral valve. Mild tricuspid valve regurgitation. Estimated pulmonary artery peak systolic pressure 25 mmHg There is no pericardial effusion. There are no intracardiac masses. Compared to the study from 07/23/2019, there may not be a significant change Dr Matty Salcedo MD [facility] (Electronically Signed) Final Date: 04 December 2019 14:05 S
[2019-12-04] MEDS: warfarin 2 mg Tablet PO (17:54)
[2019-12-04 18:30] LABS: INR 2.47 (0.8-1.2)
--- NOTE | 2019-12-04 18:36 | PC.NURSE ---
PATIENT'S COUMADIN NOT ADMINISTERED YESTERDAY, THEN DIDN'T LOOK LIKE IT WAS NEEDED TO BE GIVEN TODAY. NURSE PERFORMED ORDER CHECK, AND FOUND THIS ISSUE. NOTIFIED DR. HARRISON. ORDERED TO GIVE TODAY'S DOSE OF COUMADIN, ALTHOUGH IT WAS GIVEN LATE. ORDERED TO HAVE AN INR DRAWN AT THAT TIME. NOTIFIED DR. HARRISON WITH THE RESULTS.
--- NOTE | 2019-12-04 19:57 | PC.NURSE ---
Rounding: patient is resting in bed watching TV. Patient is alert and oriented. Denies any pain or needs.
[2019-12-05 03:00] VITALS: BP 127/72; PULSE 70; RESP 17; TEMP 36.5; O2SAT 95
[2019-12-05 06:47] VITALS: BP 120/82; PULSE 72; RESP 24; TEMP 36.5; O2SAT 93
--- NOTE | 2019-12-05 08:22 | ANE.PACU2 ---
Inpatient post-anesthesia follow up: Airway intact: Yes Vital signs: Temperature 97.7 F Pulse Rate [Monito r] 140 Pulse Rate 72 Respiratory Rate 24 Blood Pressure [Le ft Arm] 101/74 Blood Pressure 120/82 Pulse Oximetry 93 Oxygen Delivery Me thod [ Room Air Current Rate & Del chio] Oxygen Delivery Me thod Room Air Oxygen Flow Rate 2 Fraction of Inspir ed Oxygen Hydration adequate: Yes Nausea and vomiting: No Pain level: 1 Mental status: Baseline
[2019-12-05] MEDS: potassium chloride ER 10 mEq Tablet 20 MEQ PO (08:32)
[2019-12-05] MEDS: aspirin 81 mg Chew Tablet PO (08:32)
[2019-12-05] MEDS: sotalol 80 mg Tablet PO (08:33)
[2019-12-05] MEDS: FUROsemide 20 mg Tablet PO (08:33)
[2019-12-05] MEDS: atorvastatin 40 mg Tablet 10 MG PO (08:33)
--- NOTE | 2019-12-05 08:42 | PC.NURSE ---
Med wasted Pt half tab of betapace dropped on the floor. So i wasted the other half and pulled a new one from the pyxis.
--- NOTE | 2019-12-05 09:28 | PM.PN ---
Subjective Subjective: Interval history: Patient is feeling okay. The repeat EKG this morning shows no QT prolongation. No recurrence of atrial fibrillation on the telemetry. Medications: Reviewed: Yes Medication Review Details: Current Medications Aspirin (Aspirin Chewable) 81 mg PO DAILY [facility] Last Admin: 12/05/19 08:32 Dose: 81 mg Documented by: Atorvastatin Calcium (Lipitor) 10 mg PO DAILY [facility] Last Admin: 12/05/19 08:33 Dose: 10 mg Documented by: Furosemide (Lasix) 20 mg PO DAILY [facility] Last Admin: 12/05/19 08:33 Dose: 20 mg Documented by: Ondansetron HCl (Zofran) 4 mg IVP Q6H PRN PRN Reason: NAUSEA AND VOMITING Potassium Chloride (Klor-Con 10) 20 meq PO DAILY [facility] Last Admin: 12/05/19 08:32 Dose: 20 meq Documented by: Sotalol HCl (Betapace) 80 mg PO BID@0900,2100 [facility] Last Admin: 12/05/19 08:33 Dose: 80 mg Documented by: Warfarin Sodium (Coumadin) 3 mg PO MoTuWe [facility] Warfarin Sodium (Coumadin) 2 mg PO SuThFrSa [facility] Last Admin: 12/04/19 17:56 Dose: Not Given Documented by: Vitals/I&O/Wt Last Vital Signs Temp 97.7 F 12/05/19 06:47 Pulse 72 12/05/19 06:47 Resp 24 H 12/05/19 06:47 BP 120/82 12/05/19 06:47 Pulse Ox 93 12/05/19 06:47 12/04/19 12/05/19 12/05/19 22:59 06:59 14:59 Intake Total 240 / 600 450 / 1050 240 / 240 Balance 240 / 600 450 / 1050 240 / 240 Physical Exam Narrative: EXAM NARRATIVE: GENERAL: The patient is alert and oriented times three. Not in any acute distress. HEENT: Mild pallor. No icterus or lymphadenopathy. NECK: Trachea appears to be central. No masses noted. No JVD or thyromegaly appreciated. No carotid bruit. RESPIRATORY: Chest is symmetrical. The sternotomy seems to be healing well. No intercostals muscle retraction or any accessory muscle activation. There is no chest wall tenderness. Breath sounds are heard bilaterally. No rales or rhonchi heard. No evidence of any consolidation. BREASTS: Deferred. HEART: The PMI could not be palpated. No other palpable precordial events. First heart sound is variable. Second heart sound is normal. No S3. Short systolic murmur at the base of the heart. No diastolic murmurs. No pericardial rub. ABDOMEN: No vessel pulsations or distention. No tenderness. No organomegaly appreciated. No abdominal bruit. Bowel sounds are normally heard. : Deferred. RECTAL: Deferred. LYMPHATIC: No lymphadenopathy noted in the neck or groin. EXTREMITIES: No significant edema or cyanosis. Peripheral pulses are palpable in fairly good volume and amplitude. MUSCULOSKELETAL: No acute joint deformities or swelling. SKIN: There are no significant scars or skin rash noted. NEUROPSYCHIATRIC: The patient is alert and oriented x3. Appears to be in a good mood. The higher functions are grossly within normal limits. No tremors or rigidity noted. Data : 12/04/19 04:56 12/04/19 04:56 EKG 3: My Interpretation: The EKG showed normal sinus rhythm with diffuse nonspecific ST-T changes. QTC was 423. A&P Assessment and plan (1) Chronic episodic atrial fibrillation: So far is tolerating the Betapace well. If he continues to remain stable, may discharge him home today. Status: Acute (2) Dyslipidemia: We will continue the current medications. Status: Acute (3) Atherosclerotic heart disease of [place] coronary artery with other forms of angina pectoris: Currently the patient has no chest pain. Vital signs remained stable. No new arrhythmias. Status: Acute Additional A&P Information History of multiple PCI's. History of multiple electrical cardioversions. History of RF ablation x2, most recent one was 4 years ago. Attestations Medical Necessity Statement*: Discharge home today Coding Level of Care Code Acute [employer] Curtain Machine Tender for [facility] Fwd Diagnoses Chronic episodic atrial fibrillation I48.20 Dyslipidemia E78.5 Atherosclerotic heart disease of [place] coronary artery with other forms of angina pectoris I25.118
--- NOTE | 2019-12-05 10:00 | ECG_ITS ---
[facility] Test Date: 2019-12-05 Pat Name: Rodolfo Sethi Department: Room: 101 Gender: Male Eyewear Consultant: : 1940 Requested By: Matty Salcedo Order Number: [id number] Sergey MD: Matty Salcedo M.D. Measurements Intervals [place] Rate: 71 P: 73 [place]: 164 QRS: -23 QRSD: 102 T: 105 QT: 388 QTc: 423 Interpretive Statements SINUS RHYTHM BORDERLINE LEFT AXIS DEVIATION [QRS AXIS < -20] NONSPECIFIC T-WAVE ABNORMALITY Compared to ECG 12/04/2019 10:15:50 Incomplete right bundle-branch block no longer present Possible ischemia no longer present T-wave abnormality still present Electronically Signed On 12-05-2019 19:55:02 CDT by Matty Salcedo M.D. [id number]
[2019-12-05 11:00] VITALS: BP 131/72; PULSE 74; RESP 20; TEMP 36.6; O2SAT 96
[2019-12-05 14:56] VITALS: BP 133/74; PULSE 69; RESP 18; TEMP 36.6; O2SAT 92
[2019-12-05] MEDS: warfarin 2 mg Tablet PO (14:59)
--- NOTE | 2019-12-05 15:00 | PC.NURSE ---
called lab Cancelled PTT order and ordered PT/INR for Coumadin dosing. Lab is aware.
[2019-12-05 15:31] LABS: INR 2.42 (0.8-1.2)
--- NOTE | 2019-12-05 15:50 | P.DS_ITS ---
Discharge Providers Date of Admission: 12/03/19 11:16 Date of Discharge: December 05, 2019 Attending Provider at Admission: Matty Salcedo MD Attending Provider at Discharge: Matty Salcedo MD Diagnoses at Discharge Discharge Diagnosis (1) Chronic episodic atrial fibrillation: Status: Acute Problem details: Patient has a longstanding history of intermittent atrial fibrillation. He had a multiple electrical cardioversion and also to times radiofrequency ablation. Apparently he presented with complaints of palpitation and weakness. His blood pressure dropped into the 80s. He underwent electrical cardioversion which successfully cardioverted into sinus rhythm. (2) Dyslipidemia: Status: Acute Problem details: Patient is on oral statin. Seems to be tolerating the medication so far well. (3) Atherosclerotic heart disease of [place] coronary artery with other forms of angina pectoris: Status: Acute Problem details: Patient had a recent two-vessel coronary bypass surgery. Clinically seems to be stable. Reason for Visit Reason for Visit: cp, weak pulse Hospital Course 2 Hospital Course: Patient remained stable throughout the hospital course, after the electrical cardioversion. He stayed in the sinus rhythm. Because of the re current episodes of atrial fibrillation and also because of the underlying structural heart disease, it was opted to start him on Betapace in place of the propafenone. Propafenone was discontinued. So far he received 4 doses of Betapace. His QTC remains in the normal range. No pro arrhythmias are noted on the monitor. Vital signs are remaining fairly stable. Since he is remaining stable with no new symptoms, it was thought to be appropriate to discharge him home today. Physical Exam Narrative: EXAM NARRATIVE: GENERAL: The patient is alert and oriented times three. Not in any acute distress. HEENT: Mild pallor. No icterus or lymphadenopathy. NECK: Trachea appears to be central. No masses noted. No JVD or thyromegaly appreciated. No carotid bruit. RESPIRATORY: Chest is symmetrical. The sternotomy seems to be healing well. No intercostals muscle retraction or any accessory muscle activation. There is no chest wall tenderness. Breath sounds are heard bilaterally. No rales or rhonchi heard. No evidence of any consolidation. BREASTS: Deferred. HEART: The PMI could not be palpated. No other palpable precordial events. First heart sound is variable. Second heart sound is normal. No S3. Short systolic murmur at the base of the heart. No diastolic murmurs. No pericardial rub. ABDOMEN: No vessel pulsations or distention. No tenderness. No organomegaly appreciated. No abdominal bruit. Bowel sounds are normally heard. : Deferred. RECTAL: Deferred. LYMPHATIC: No lymphadenopathy noted in the neck or groin. EXTREMITIES: No significant edema or cyanosis. Peripheral pulses are palpable in fairly good volume and amplitude. MUSCULOSKELETAL: No acute joint deformities or swelling. SKIN: There are no significant scars or skin rash noted. NEUROPSYCHIATRIC: The patient is alert and oriented x3. Appears to be in a good mood. The higher functions are grossly within normal limits. No tremors or rigidity noted. Discharge Data Data Completed and Pending: Completed Studies During Hospitalization Category Date Time Status XR chest 1V radha ble [id number] Stat Exams 12/03/19 05:44 Completed CV echo complete* [id number] Routine Ultrasound 12/04/19 13:48 Completed Labs from last 24 hours 12/05/19 12/04/19 14:55 18:11 PT 27.20 H 27.70 H INR 2.42 H 2.47 H Vitals: Last Vital Signs Temp 97.8 F 12/05/19 14:56 Pulse 69 12/05/19 14:56 Resp 18 12/05/19 14:56 BP 133/74 12/05/19 14:56 Pulse Ox 92 12/05/19 14:56 Discharge Plan Discharge Patient Disposition: Home Condition: Stable Prescriptions: New sotalol 80 mg Tablet 80 mg PO BID@0900,2100 Qty: 30 RF: 0 Continued atorvastatin 10 mg tablet 10 mg PO DAILY RF: 0 potassium chloride 20 mEq tablet,ER particles/crystals 20 meq PO BID RF: 0 warfarin 2 mg tablet See Rx Instructions .ROUTE .COMPLEX RF: 0 aspirin 81 mg Tablet,Chewable 81 mg PO DAILY RF: 0 furosemide 20 mg tablet 20 mg PO BID RF: 0 hydrocodone-acetaminophen 5-325 mg Tablet 1 tab PO Q4H PRN (Reason: pain) RF: 0 Colace 100 mg Capsule 100 mg PO DAILY RF: 0 Discontinued propafenone 150 mg tablet 150 mg PO TID RF: 0 Discharge Orders: Discharge Order (Routine); Ordered 12/05/19 Ordered By: Matty Salcedo Discharge Diet: Advance as tolerated and Cardiac Discharge Activity: Resume usual activity Activity Restrictions/Additional Instructions: Advised to gradually advance the exercise. 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 in [place] and also with the cardiothoracic surgeon at the [facility] Discharge Attestations Time Spent in Discharge Care*: greater than 30 min Status at Discharge: Cognitive status at discharge: cognitively intact , Behavioral status at discharge: cooperative , Functional status at discharge: independent ambulation Overall status at discharge: patient is back to baseline Quality Metrics Clinical Quality Measures During this hospital stay, did patient experience: None Coding Level of Care Code Acute Authorization Manager for Chg Fwd Diagnoses Chronic episodic atrial fibrillation I48.20 Dyslipidemia E78.5 Atherosclerotic heart disease of [place] coronary artery with other forms of angina pectoris I25.118
[2019-12-05 16:27] VITALS: BP 111/76; PULSE 76; RESP 14; TEMP 36.6; O2SAT 96
[2019-12-05 16:29] VITALS: BP 111/76; PULSE 76; RESP 14; TEMP 36.6; O2SAT 96
--- NOTE | 2019-12-05 17:22 | PC.NURSE ---
Discharge to home Instructed pt to follow-up with his dean of instruction and keep his ff-up appointment w/ the cardiac surgeon on Friday stated by pt. Informed pt that he will need a follow-up EKG on as ordered at [facility]. Informed pt on his new meds dosing, timing, possible s/e and action. Pt stated he only take Furosemied lasix for 14 days per his dean of instruction. Discuss to pt that he can follow-up with that and continue on his home meds. Pt verbalizes understanding. Discharge papers provided to pt.
--- NOTE | 2019-12-05 17:25 | PC.NURSE ---
Dispense med Pt pharmacy is close today which is [facility]. Sent 2 tabs of 80 mg Betapace for pt to take tonight and tomorrow as scheduled. And then pt can pick it up tomorrow. Faxed to in pharmacy the med dispense form.
== END 2019-12-05 17:12 | disposition home or self-care (01) ==
LOC: ER 10:13 → CSU 11:30
PROVIDERS: Emergency Medicine; Family Medicine; Admitting Provider Internal Medicine Cardiovascular Disease; Visit Provider Internal Medicine Cardiovascular Disease
DX: I48.20 Chronic atrial fibrillation, unspecified (principal); E78.5 Hyperlipidemia, unspecified; I25.118 Atherosclerotic heart disease of native coronary artery with other forms of angina pectoris; Z79.01 Long term (current) use of anticoagulants; Z79.82 Long term (current) use of aspirin
CPT/HCPCS: 12345; 36415; 71045; 80048; 80053; 84484; 85025; 85610; 85730; 93005; 93306; 96361; 96365; 96366; 96374; 96375; 99284; 99285; G0378; J1160; J1940; J2704; J3490; J7040

== ENCOUNTER → 2021-07-23 11:51 | Outpatient (BNVA) | payer MEDICARE, SELFPAY | PROVIDERS: PCP Family Medicine; Visit Provider Family Medicine | DX: I25.10 Atherosclerotic heart disease of native coronary artery without angina pectoris (principal); C61 Malignant neoplasm of prostate; I48.91 Unspecified atrial fibrillation; E01.0 Iodine-deficiency related diffuse (endemic) goiter | CPT/HCPCS: 85610 ==

== ENCOUNTER → 2021-09-05 17:19 | Outpatient (BNVA) | payer MEDICARE, SELFPAY | PROVIDERS: PCP Family Medicine; Visit Provider Emergency Medicine | DX: R07.9 Chest pain, unspecified (principal); R09.1 Pleurisy | CPT/HCPCS: 84484 ==

== ENCOUNTER 2021-09-22 10:54 | Outpatient (CLI) | payer MEDICARE, SELFPAY ==
--- NOTE | 2021-09-22 11:01 | XRR_ITS ---
PROCEDURE INFORMATION: Exam: XR Abdomen Exam date and time: 09/22/2021 11:06 AM Age: 81 years old Clinical indication: Constipation TECHNIQUE: Imaging protocol: Radiologic exam of the abdomen. Views: Frontal supine view of the abdomen. 1 View. COMPARISON: CR XR chest 1V portable [id number] 12/03/2019 5:59 AM FINDINGS: Gastrointestinal tract: Normal. No bowel dilation. Negative for significant fecal stasis Bones/joints: Unremarkable. XR/XR KUB [id number] IMPRESSION: 1. No acute findings. 2. Negative for significant fecal stasis
== END 2021-09-22 10:55 | disposition home or self-care (01) ==
PROVIDERS: PCP Family Medicine; Visit Provider Family Medicine
DX: K59.00 Constipation, unspecified (principal)
CPT/HCPCS: 74018

== ENCOUNTER → 2021-09-26 11:56 | Outpatient (BNVA) | payer MEDICARE, SELFPAY | PROVIDERS: PCP Family Medicine; Visit Provider Family Medicine | DX: I48.20 Chronic atrial fibrillation, unspecified (principal); K92.2 Gastrointestinal hemorrhage, unspecified | CPT/HCPCS: 80053; 85025; 85610 ==

== ENCOUNTER → 2021-09-28 08:59 | Outpatient (BNVA) | payer MEDICARE, SELFPAY | PROVIDERS: PCP Family Medicine; Visit Provider Family Medicine | DX: K92.2 Gastrointestinal hemorrhage, unspecified (principal); E78.5 Hyperlipidemia, unspecified; I25.10 Atherosclerotic heart disease of native coronary artery without angina pectoris | CPT/HCPCS: 85025; 85610 ==

== ENCOUNTER → 2021-10-01 13:58 | Outpatient (BNVA) | payer MEDICARE, SELFPAY | PROVIDERS: PCP Family Medicine; Visit Provider Family Medicine | DX: K92.2 Gastrointestinal hemorrhage, unspecified (principal); I25.10 Atherosclerotic heart disease of native coronary artery without angina pectoris; R03.0 Elevated blood-pressure reading, without diagnosis of hypertension; E78.5 Hyperlipidemia, unspecified | CPT/HCPCS: 85025; 85610 ==

== ENCOUNTER → 2021-10-04 09:47 | Outpatient (BNVA) | payer MEDICARE, SELFPAY | PROVIDERS: PCP Family Medicine; Visit Provider Family Medicine | DX: K92.2 Gastrointestinal hemorrhage, unspecified (principal); R03.0 Elevated blood-pressure reading, without diagnosis of hypertension | CPT/HCPCS: 80053; 85025; 86140 ==

== ENCOUNTER → 2021-10-11 11:12 | Outpatient (BNVA) | payer MEDICARE, SELFPAY | PROVIDERS: PCP Family Medicine; Visit Provider Family Medicine | DX: K92.2 Gastrointestinal hemorrhage, unspecified (principal); R03.0 Elevated blood-pressure reading, without diagnosis of hypertension | CPT/HCPCS: 85025 ==

== ENCOUNTER → 2021-10-26 08:09 | Outpatient (BNVA) | payer MEDICARE, SELFPAY | PROVIDERS: PCP Family Medicine; Visit Provider Family Medicine | DX: I48.91 Unspecified atrial fibrillation (principal); K92.2 Gastrointestinal hemorrhage, unspecified | CPT/HCPCS: 85025 ==

== ENCOUNTER → 2021-11-02 09:22 | Outpatient (BNVA) | payer MEDICARE, SELFPAY | PROVIDERS: PCP Family Medicine; Visit Provider Family Medicine | DX: I48.91 Unspecified atrial fibrillation (principal); K92.2 Gastrointestinal hemorrhage, unspecified; E78.5 Hyperlipidemia, unspecified | CPT/HCPCS: 85610 ==

== ENCOUNTER → 2021-11-14 09:24 | Outpatient (BNVA) | payer MEDICARE, SELFPAY | PROVIDERS: PCP Family Medicine; Visit Provider Family Medicine | DX: I48.91 Unspecified atrial fibrillation (principal); K92.2 Gastrointestinal hemorrhage, unspecified | CPT/HCPCS: 85610 ==

== ENCOUNTER → 2021-12-18 09:57 | Outpatient (BNVA) | payer MEDICARE, SELFPAY | PROVIDERS: PCP Family Medicine; Visit Provider Family Medicine | DX: I48.91 Unspecified atrial fibrillation (principal); K92.2 Gastrointestinal hemorrhage, unspecified; I25.10 Atherosclerotic heart disease of native coronary artery without angina pectoris | CPT/HCPCS: 85610 ==

== ENCOUNTER → 2022-01-07 09:27 | Outpatient (BNVA) | payer MEDICARE, SELFPAY | PROVIDERS: PCP Family Medicine; Visit Provider Family Medicine | DX: I25.10 Atherosclerotic heart disease of native coronary artery without angina pectoris (principal); I48.20 Chronic atrial fibrillation, unspecified; K92.2 Gastrointestinal hemorrhage, unspecified | CPT/HCPCS: 85610 ==

== ENCOUNTER → 2022-02-13 09:00 | Outpatient (BNVA) | payer MEDICARE, SELFPAY | PROVIDERS: PCP Family Medicine; Visit Provider Family Medicine | DX: I48.91 Unspecified atrial fibrillation (principal); K92.2 Gastrointestinal hemorrhage, unspecified; I35.0 Nonrheumatic aortic (valve) stenosis; I25.10 Atherosclerotic heart disease of native coronary artery without angina pectoris | CPT/HCPCS: 85610 ==

== ENCOUNTER → 2022-03-12 08:52 | Outpatient (BNVA) | payer MEDICARE, SELFPAY | PROVIDERS: PCP Family Medicine; Visit Provider Family Medicine | DX: I25.10 Atherosclerotic heart disease of native coronary artery without angina pectoris (principal); I48.91 Unspecified atrial fibrillation; Z98.61 Coronary angioplasty status; Z98.890 Other specified postprocedural states; I25.118 Atherosclerotic heart disease of native coronary artery with other forms of angina pectoris | CPT/HCPCS: 85610 ==

== ENCOUNTER → 2022-04-18 08:57 | Outpatient (BNVA) | payer MEDICARE, SELFPAY | PROVIDERS: PCP Family Medicine; Visit Provider Family Medicine | DX: I48.91 Unspecified atrial fibrillation (principal); K92.2 Gastrointestinal hemorrhage, unspecified; I25.10 Atherosclerotic heart disease of native coronary artery without angina pectoris | CPT/HCPCS: 85025; 85610 ==

== ENCOUNTER 2022-06-01 11:42 | Outpatient (CLI) | payer MEDICARE, SELFPAY ==
--- NOTE | 2022-06-01 12:00 | USCV_ITS ---
Rodolfo Sethi Age: 82 Gender: M : 1940 Exam Date: 06/01/2022 12:07 Ordering Phys: Marcio Nunes MD Technologist: [place] [facility] [place]: LT LEG PAIN AND SWELLING PROCEDURES: Venous duplex imaging was performed in only the left lower extremity. The following venous structures were evaluated: common femoral vein, profunda vein, proximal portion of the greater saphenous vein, superficial femoral vein, and the popliteal vein. In addition, the posterior tibial and peroneal trunk were evaluated. FINDINGS: Normal 2-D Doppler and augmentation and compressibility throughout the lower extremity venous structures. Additional imaging through the proximal calf veins also reveals no thrombus. Limited evaluation of the greater saphenous vein is patent with no thrombus. CONCLUSIONS No evidence of left lower extremity DVT. Simon Elena MD (Electronically Signed) Final Date: 02 June 2022 09:58 S
== END 2022-06-01 11:43 | disposition home or self-care (01) ==
LOC: RAD 11:47
PROVIDERS: PCP Family Medicine; Visit Provider Family Medicine
DX: I25.10 Atherosclerotic heart disease of native coronary artery without angina pectoris (principal); M79.605 Pain in left leg
CPT/HCPCS: 93971

== ENCOUNTER 2022-06-22 07:22 | Outpatient (CLI) | payer MEDICARE, SELFPAY ==
--- NOTE | 2022-06-22 07:45 | MR_ITS ---
WS: [id number] MRI LUMBAR SPINE NONCONTRAST TECHNIQUE: Sagittal T1, T2 and STIR imaging. Axial T1 and T2 imaging. CLINICAL INFORMATION: sciatica COMPARISON: None. FINDINGS: Mild lumbar curve. No acute compression. Slight anterolisthesis L4 on L5. L1-L2: Chronic appearing bony ankylosis across the L1-L2 disc space with RIGHT eccentric marginal ost eophytes. Mild RIGHT foraminal narrowing. This can be seen with prior discitis. L2-L3: Mild annular bulging. Mild facet arthropathy. Spinal canal and foramen are patent. L3-L4: Mild annular bulging. Mild facet arthropathy. Small RIGHT foraminal protrusion with mild RIGHT foraminal narrowing. L4-L5: Mild annular bulging with impingement on the traversing LEFT greater than RIGHT L5 nerve roots . Mild to moderate facet arthropathy. Mild LEFT and no significant RIGHT foraminal narrowing. L5-S1: Mild annular bulging. Slight effacement of ventral thecal sac. Spinal canal and foramen are pa tent. Mild facet arthropathy. Visualized pelvic bony structures: Normal. Paravertebral soft tissues: Normal. MR/MR lumbar spine wo con* [id number] IMPRESSION: 1. Mild lumbar curve. No acute compression. Slight anterolisthesis L4 on L5. 2. Annular bulging L4-L5 impinges the traversing LEFT greater than RIGHT L5 ne rve roots in the subarticular recess. Mild central canal stenosis at this level . Recommend correlation LEFT L5 nerve root symptoms. Mild LEFT L4-L5 foraminal narrowing. 3. Mild RIGHT L3-L4 foraminal narrowing with a small RIGHT foraminal protrusio n. 4. Chronic appearing bony ankylosis across the L1-L2 disc space with RIGHT ecc entric marginal osteophytes. Mild RIGHT foraminal narrowing. This can be seen w ith prior discitis.
== END 2022-06-22 07:23 | disposition home or self-care (01) ==
LOC: RAD 07:31
PROVIDERS: PCP Family Medicine; Visit Provider Family Medicine
DX: M54.30 Sciatica, unspecified side (principal); M43.8X6 Other specified deforming dorsopathies, lumbar region; M51.36 Other intervertebral disc degeneration, lumbar region; M51.26 Other intervertebral disc displacement, lumbar region
CPT/HCPCS: 72148

== ENCOUNTER 2022-07-02 16:09 | Outpatient (CLI) | payer MEDICARE, SELFPAY ==
--- NOTE | 2022-07-02 16:30 | CT_ITS ---
WS: [id number] CT PELVIS WITHOUT CONTRAST. 3-D. HISTORY: right hip pain, history of prostate cancer. TECHNIQUE: Contiguous imaging is performed of the pelvis without contrast. Coronal and sagittal refor mats are reviewed. All CT scans at [facility] use at least one of these dose optimization adolfo hniques: automated exposure control; mA and/or kV adjustment per patient size (includes targeted exam s where dose is matched to clinical indication); or iterative reconstruction. DLP: 307.13 mGy.cm COMPARISON: None available. Very mild narrowing of the hip joints bilaterally. Symmetric narrowing with no osseous destruction. V parker minimal osteophytic ridging around the acetabuli. There is a very mild osseous prominence at the femoral head and neck junction of the RIGHT hip. Small cystic changes associated with the prominence. This can be associated with the femoral acetabular impingement syndrome. Very minimal degenerative a ir in the SI joints. No fusion or erosions. Moderate atherosclerotic calcification in the iliac arteries. Inguinal canals are patent bilaterally containing fat. Urinary bladder is negative. No ascites or adenopathy within the pelvis. CT/CT bony pelvis [id number] IMPRESSION: 1. Very mild bilateral narrowing of the hip joints. 2. No destructive bone lesions or evidence for prostate metastatic disease. 3. Very minimal osseous prominence at the RIGHT femoral head and neck junction . This can be seen with femoral acetabular impingement syndrome. Please note th is is a very minimal amount of bony prominence but there are associated cystic changes in the femoral head. This can also be associated with labral tears. For evaluation of labral tear MRI of the RIGHT hip would be beneficial.
== END 2022-07-02 16:10 | disposition home or self-care (01) ==
LOC: RAD 16:15
PROVIDERS: PCP Family Medicine; Visit Provider Family Medicine
DX: M25.551 Pain in right hip (principal)
CPT/HCPCS: 72192

== ENCOUNTER → 2022-07-03 10:15 | Outpatient (BNVA) | payer MEDICARE, SELFPAY | PROVIDERS: PCP Family Medicine; Visit Provider Family Medicine | DX: I25.10 Atherosclerotic heart disease of native coronary artery without angina pectoris (principal); I48.91 Unspecified atrial fibrillation | CPT/HCPCS: 85610 ==

== ENCOUNTER → 2022-07-08 11:51 | Outpatient (BNVA) | payer MEDICARE, SELFPAY | PROVIDERS: PCP Family Medicine; Visit Provider Family Medicine | DX: I25.10 Atherosclerotic heart disease of native coronary artery without angina pectoris (principal) | CPT/HCPCS: 85610 ==

== ENCOUNTER → 2022-07-16 14:03 | Outpatient (BNVA) | payer MEDICARE, SELFPAY | PROVIDERS: PCP Family Medicine; Referring Provider Family Medicine; Visit Provider Orthopaedic Surgery | DX: M54.16 Radiculopathy, lumbar region (principal) | CPT/HCPCS: 99203 ==

== ENCOUNTER → 2022-07-18 08:04 | Outpatient (BNVA) | payer MEDICARE, SELFPAY | PROVIDERS: PCP Family Medicine; Visit Provider Orthopaedic Surgery | DX: M54.16 Radiculopathy, lumbar region (principal); M54.9 Dorsalgia, unspecified; M48.062 Spinal stenosis, lumbar region with neurogenic claudication; I25.10 Atherosclerotic heart disease of native coronary artery without angina pectoris; I48.91 Unspecified atrial fibrillation | CPT/HCPCS: 72110; 85610; 99204 ==

== ENCOUNTER → 2022-07-29 09:09 | Outpatient (BNVA) | payer MEDICARE, SELFPAY | PROVIDERS: PCP Family Medicine; Visit Provider Family Medicine | DX: I25.10 Atherosclerotic heart disease of native coronary artery without angina pectoris (principal); I35.0 Nonrheumatic aortic (valve) stenosis; Z98.890 Other specified postprocedural states; I48.91 Unspecified atrial fibrillation | CPT/HCPCS: 85610 ==

== ENCOUNTER → 2022-08-08 08:06 | Outpatient (BNVA) | payer MEDICARE, SELFPAY | PROVIDERS: PCP Family Medicine; Visit Provider Orthopaedic Surgery | DX: M48.062 Spinal stenosis, lumbar region with neurogenic claudication (principal) | CPT/HCPCS: 99213 ==

== ENCOUNTER → 2022-08-15 08:54 | Outpatient (BNVA) | payer MEDICARE, SELFPAY | PROVIDERS: PCP Family Medicine; Visit Provider Family Medicine | DX: I25.10 Atherosclerotic heart disease of native coronary artery without angina pectoris (principal); R03.0 Elevated blood-pressure reading, without diagnosis of hypertension | CPT/HCPCS: 85610 ==

== ENCOUNTER → 2022-08-26 09:36 | Outpatient (BNVA) | payer MEDICARE, SELFPAY | PROVIDERS: PCP Family Medicine; Visit Provider Family Medicine | DX: I25.10 Atherosclerotic heart disease of native coronary artery without angina pectoris (principal); I48.91 Unspecified atrial fibrillation; I25.118 Atherosclerotic heart disease of native coronary artery with other forms of angina pectoris | CPT/HCPCS: 85610 ==

== ENCOUNTER → 2022-09-05 10:41 | Outpatient (BNVA) | payer MEDICARE, SELFPAY | PROVIDERS: PCP Family Medicine; Visit Provider Family Medicine | DX: I48.91 Unspecified atrial fibrillation (principal); E78.5 Hyperlipidemia, unspecified | CPT/HCPCS: 85610 ==

== ENCOUNTER → 2022-10-01 08:59 | Outpatient (BNVA) | payer MEDICARE, SELFPAY | PROVIDERS: PCP Family Medicine; Visit Provider Family Medicine | DX: I48.91 Unspecified atrial fibrillation (principal); E78.5 Hyperlipidemia, unspecified; I35.0 Nonrheumatic aortic (valve) stenosis; M48.062 Spinal stenosis, lumbar region with neurogenic claudication | CPT/HCPCS: 80053; 80061; 85025; 85610 ==

== ENCOUNTER → 2022-10-29 09:56 | Outpatient (BNVA) | payer MEDICARE, SELFPAY | PROVIDERS: PCP Family Medicine; Visit Provider Family Medicine | DX: I48.91 Unspecified atrial fibrillation; I25.10 Atherosclerotic heart disease of native coronary artery without angina pectoris; E78.5 Hyperlipidemia, unspecified; K92.2 Gastrointestinal hemorrhage, unspecified | CPT/HCPCS: 85610 ==

== ENCOUNTER → 2022-12-05 09:12 | Outpatient (BNVA) | payer MEDICARE, SELFPAY | PROVIDERS: PCP Family Medicine; Visit Provider Family Medicine | DX: I25.10 Atherosclerotic heart disease of native coronary artery without angina pectoris (principal); I48.91 Unspecified atrial fibrillation | CPT/HCPCS: 85610 ==

== ENCOUNTER 2023-02-07 17:40 | Emergency (ER) | payer MEDICARE, SELFPAY ==
--- NOTE | 2023-02-07 17:44 | ECG_ITS ---
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 Measurements Intervals Start Rate: 78 P: 0 MT: 0 QRS: -7 QRSD: 174 T: 179 QT: 494 QTc: 565 Interpretive Statements Sinus rhythm with a first-degree AV block and PACs. LEFT BUNDLE BRANCH BLOCK [120+ ms QRS DURATION, 80+ ms Q/S IN V1/V2, 85+ ms R IN I/aVL/V5/V6] Compared to ECG 12/05/2019 11:07:01 Left bundle-branch block now present T-wave abnormality no longer present Electronically Signed On 02-07-2023 19:30:06 [employer] by Matty Salcedo M.D. [email or web address]
[2023-02-07 17:48] VITALS: PULSE 78; RESP 17
== END 2023-02-07 17:55 | disposition left against medical advice (07) ==
LOC: ER 17:46
PROVIDERS: Emergency Provider Family Medicine; PCP Family Medicine
DX: Z53.21 Procedure and treatment not carried out due to patient leaving prior to being seen by health care provider (principal)
CPT/HCPCS: 93005

== ENCOUNTER → 2023-02-20 15:11 | Outpatient (BNVA) | payer MEDICARE, SELFPAY | PROVIDERS: PCP Family Medicine; Visit Provider Family Medicine | DX: I35.0 Nonrheumatic aortic (valve) stenosis (principal); I25.10 Atherosclerotic heart disease of native coronary artery without angina pectoris | CPT/HCPCS: 80053; 85025; 85610 ==

== ENCOUNTER → 2023-04-09 08:46 | Outpatient (BNVA) | payer MEDICARE, SELFPAY | PROVIDERS: PCP Family Medicine; Visit Provider Family Medicine | DX: I25.10 Atherosclerotic heart disease of native coronary artery without angina pectoris (principal); I35.0 Nonrheumatic aortic (valve) stenosis; I48.91 Unspecified atrial fibrillation | CPT/HCPCS: 85025; 85610 ==

== ENCOUNTER → 2023-04-14 09:10 | Outpatient (BNVA) | payer MEDICARE, SELFPAY | PROVIDERS: PCP Family Medicine; Visit Provider Family Medicine | DX: I48.91 Unspecified atrial fibrillation (principal) | CPT/HCPCS: 85610 ==

== ENCOUNTER → 2023-05-20 09:07 | Outpatient (BNVA) | payer MEDICARE, SELFPAY | PROVIDERS: PCP Family Medicine; Visit Provider Family Medicine | DX: I48.91 Unspecified atrial fibrillation (principal) | CPT/HCPCS: 85610 ==

== ENCOUNTER → 2023-05-29 09:02 | Outpatient (BNVA) | payer MEDICARE, SELFPAY | PROVIDERS: PCP Family Medicine; Visit Provider Family Medicine | DX: I48.91 Unspecified atrial fibrillation (principal) | CPT/HCPCS: 85610 ==

== ENCOUNTER → 2023-06-24 08:50 | Outpatient (BNVA) | payer MEDICARE, SELFPAY | PROVIDERS: PCP Family Medicine; Visit Provider Family Medicine | DX: I48.91 Unspecified atrial fibrillation (principal) | CPT/HCPCS: 85610 ==

== ENCOUNTER → 2023-07-28 09:07 | Outpatient (BNVA) | payer MEDICARE, SELFPAY | PROVIDERS: PCP Family Medicine; Visit Provider Family Medicine | DX: Z86.711 Personal history of pulmonary embolism (principal); I48.91 Unspecified atrial fibrillation | CPT/HCPCS: 85610 ==

== ENCOUNTER → 2023-08-25 08:54 | Outpatient (BNVA) | payer MEDICARE, SELFPAY | PROVIDERS: PCP Family Medicine; Visit Provider Family Medicine | DX: I48.91 Unspecified atrial fibrillation (principal) | CPT/HCPCS: 85610 ==

== ENCOUNTER → 2023-09-23 11:11 | Outpatient (BNVA) | payer MEDICARE, SELFPAY | PROVIDERS: PCP Family Medicine; Visit Provider Family Medicine | DX: I48.91 Unspecified atrial fibrillation (principal) | CPT/HCPCS: 85610 ==

== ENCOUNTER → 2023-11-21 09:17 | Outpatient (BNVA) | payer MEDICARE, SELFPAY | PROVIDERS: PCP Family Medicine; Visit Provider Family Medicine | DX: I25.10 Atherosclerotic heart disease of native coronary artery without angina pectoris (principal); I48.91 Unspecified atrial fibrillation | CPT/HCPCS: 85610 ==

== ENCOUNTER → 2023-12-15 16:05 | Outpatient (BNVA) | payer MEDICARE, SELFPAY | PROVIDERS: PCP Family Medicine; Visit Provider Family Medicine | DX: I35.0 Nonrheumatic aortic (valve) stenosis (principal); I48.91 Unspecified atrial fibrillation; E78.5 Hyperlipidemia, unspecified; I25.10 Atherosclerotic heart disease of native coronary artery without angina pectoris | CPT/HCPCS: 80053; 80061; 85025; 85610 ==

== ENCOUNTER → 2023-12-22 15:33 | Outpatient (BNVA) | payer MEDICARE, SELFPAY | PROVIDERS: PCP Family Medicine; Visit Provider Family Medicine | DX: C44.42 Squamous cell carcinoma of skin of scalp and neck (principal) | CPT/HCPCS: 88305 ==

== ENCOUNTER → 2024-01-20 08:57 | Outpatient (BNVA) | payer MEDICARE, SELFPAY | PROVIDERS: PCP Family Medicine; Visit Provider Family Medicine | DX: I48.91 Unspecified atrial fibrillation (principal) | CPT/HCPCS: 85610 ==

== ENCOUNTER 2024-02-06 10:00 | Oncology outpatient (recurring) (ONCR) | payer MEDICARE, SELFPAY ==
[2024-01-28 15:59] LABS: Basophils # 0.1 10^3/uL (0.0-0.1); Basophils % 0.9 %; Eosinophils # 0.3 10^3/uL (0.0-0.8); Eosinophils % 5.9 %; Hematocrit 44.3 % (37-53); Lymphocytes # 1.9 10^3/uL (0.8-4.8); Lymphocytes % 32.5 %; Mean Corpuscular HGB Conc 33.4 g/dL (30-55); Mean Corpuscular Hemoglobin 31.5 pg (27-33); Mean Corpuscular Volume 94.3 fl (82-101); Monocytes # 0.7 10^3/uL (0.2-0.9); Neutrophils # 2.82 10^3/uL (1.8-7.7); Neutrophils % 48.5 %; Nucleated Red Blood Cells % 0 %; Platelet Count 210 10^3/cmm (157-399); Red Cell Distribution Width 11.8 % (12.1-15.1); White Blood Count 5.81 10^3/uL (3.29-11.43)
[2024-01-28 16:22] LABS: Alanine Aminotransferase 11 U/L (0-41); Albumin Level 3.8 g/dL (3.5-5.2); Alkaline Phosphatase 73 U/L (40-130); Anion Gap 13.5 (5-19); Aspartate Amino Transferase 21 U/L (0-40); Blood Urea Nitrogen 17 mg/dL (8-23); Carbon Dioxide 24 mmol/L (22-29); Chloride 105 mmol/L (98-107); Creatinine Clr Calc Pharmacy 78.4868; Globulin 2.8 g/dL (1.3-4.6); Glucose 104 mg/dL (65-115); Osmolality Calculated 288 mOsm/kg (285-295); Potassium 4.5 mmol/L (3.5-5.1); Sodium 138 mmol/L (136-145); Total Bilirubin 0.4 mg/dL (0.15-1.2); Total Protein 6.6 g/dL (6.6-8.7)
[2024-01-28 17:38] LABS: Lactate Dehydrogenase 290 U/L (135-225)
--- NOTE | 2024-02-06 10:00 | PETR_ITS ---
PROCEDURE INFORMATION: Exam: PET/CT Skull Base to Mid-thigh Exam date and time: 02/06/2024 10:38 AM Age: 83 years old Clinical indication: Condition or disease; Primary cancer: T cell lymphoma; Initial oncological staging assessment; Additional info: T-cell lymphoma LABS AND CLINICAL REPORTS: Glucose: 97 mg/dl Treatment strategy for malignancy (PET staging): Initial Staging (PI) TECHNIQUE: Imaging protocol: Following at least four-hour fasting and following the injection of radiopharmaceutical, low dose CT images were obtained. Then, PET images were obtained. Attenuation corrected images were constructed using the CT scan. Fused images of PET and CT were reviewed. The standardized uptake values (SUV) reported below are maximum values within a region of interest, expressed in gm/ml. Exam includes orbital meatal line to mid-thigh. SUV normalization method: BodyWeight Radiopharmaceutical: 11.67 mCi F-18 FDG (Fluorodeoxyglucose), IV. Time of imaging post radiopharmaceutical administration: 45 minutes Injection site: right hand COMPARISON: CT bony pelvis [id number] 07/02/2022 4:32 PM FINDINGS: Tubes, catheters and devices: Dual lead cardiac device with left chest generator. Brain: Visualized brain has normal physiologic uptake. Paranasal sinuses: Small non FDG avid mucous retention cysts at the inferior maxillary sinuses. Otherwise clear. Pharynx: No abnormal uptake. Larynx: No abnormal uptake. Lungs, pleura and trachea: No abnormal uptake. Mild bibasilar atelectasis versus scarring. No consolidation or mass. Calcified granulomata. Heart: Normal physiologic uptake. Prosthetic aortic valve. Coronary arteries: Heavy coronary artery calcification. Status post CABG. Mediastinal space: No abnormal uptake. Diaphragm: Small hiatal hernia. Liver: No abnormal uptake. Calcified granulomata. Gallbladder and biliary ducts: No abnormal uptake. Pancreas: No abnormal uptake. Spleen: No abnormal uptake. Calcified granulomata. Adrenal glands: No abnormal uptake. Kidneys and ureters: Normal physiologic uptake. Stomach and bowel: Masslike thickening at the ascending colon measuring 3 x 2.4 cm on axial image 138 and shows SUV max 19.4. Vasculature: No abnormal uptake. Heavy systemic atherosclerotic calcification without aortic aneurysm. Lymph nodes: Right precarinal lymph node measures 1.1 cm in the short axis on axial image 243 and shows SUV max 3.7. Calcified bilateral hilar lymph nodes in keeping with sequela of old granulomatous disease. Skeleton: Approximately 1.7 x 1.2 cm heterogeneous lucent lesion at the posterior left humeral head/neck on axial image 275 with thin sclerotic rim and low-level FDG uptake showing SUV max 2.7. Degenerative changes along the spine. Prior median sternotomy. Soft tissues: Adjacent to the left superolateral zygomatic arch is a superficial soft tissue masslike structure measuring 2.8 x 1.0 cm on axial image 336 with approximately 2 cm long thin oblique linear calcific density within, SUV max 11.0. Small fat containing umbilical and bilateral inguinal hernias. METRICS: Mediastinal blood pool: SUV mean 2.3 Liver uptake: SUV mean 2.6 PET/PET skull to thigh INIT [id number] IMPRESSION: 1. Single mildly metabolic mediastinal lymph node is nonspecific, could be reactive/granulomatous or neoplastic. 2. Highly FDG avid ascending colon masslike thickening suspicious for malignancy. Recommend colonoscopy. 3. FDG avid 2.8 cm long masslike structure adjacent to the left superolateral zygomatic arch. Although this could be neoplastic, thin linear calcific density within suggests foreign body granuloma. 4. Nonspecific mildly FDG avid posterior left humeral head/neck nonaggressive lucent lesion.
== END 2024-02-17 23:59 | disposition home or self-care (01) ==
LOC: RAD 02-07 00:01 → ONCMED 02-09 10:11
PROVIDERS: Visit Provider Internal Medicine Medical Oncology
DX: Z53.9 Procedure and treatment not carried out, unspecified reason (principal); C44.42 Squamous cell carcinoma of skin of scalp and neck; C85.90 Non-Hodgkin lymphoma, unspecified, unspecified site; M89.9 Disorder of bone, unspecified; K63.89 Other specified diseases of intestine
CPT/HCPCS: 36415; 78815; 80053; 83520; 83615; 85025; 99204; A9552

== ENCOUNTER 2024-02-24 08:13 | Oncology outpatient (recurring) (ONCR) | payer MEDICARE, SELFPAY ==
--- NOTE | 2024-02-24 09:10 | N.ONRAD NP_ITS ---
Radiation Oncology New Patient Visit Patient: Rodolfo Sethi MR#: [id number] : 1940> Age: 83> Sex: Male> Dictated by: Dr. Nickie Romero Date of Service: 02/24/2024 Referring Physician(s) : Dr. Berkowitz Diagnosis: Primary cutaneous anaplastic large cell lymphoma Radiotherapy to date: Summary > No prior radiation therapy. Chief Complaint / History of Present Illness: Patient is an 83-year-old gentleman who noticed abnormal growths on his scalp just at the hairline. 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 He has visited with medical oncology and a PET scan was done. The PET scan did not reveal any distant related abnormalities. He has visited with medical oncology again today and is referred today to discuss focal radiation to the scalp area to prevent recurrence. Current Medications: Last Reconciled 02/24/24 by Phoenix Kaplan atorvastatin TAKE ONE TABLET BY MOUTH DAILY cetirizine 5 mg PO DAILY PRN docusate sodium (Colace) 100 mg PO BID 14 days pantoprazole TAKE 1 TABLET BY MOUTH EVERY DAY polyethylene glycol 3350 (Miralax) 17 grams PO DAILY 14 days sotalol take 1/2 tablet BY MOUTH TWICE DAILY sotalol 40 mg PO DAILY warfarin 2mg in am and 1mg in pm warfarin 3 mg PO .qod warfarin 2 mg PO .qod Allergies: Penicillins Allergy (Severe, Verified 02/24/24 08:26) unknown Medical History: Chest pain History of prostate cancer Atrial fibrillation Dyslipidemia Patient is on oral statin. Seems to be tolerating the medication so far well. Surgical History: History of prostate surgery Hx of cataract extraction History of tonsillectomy and adenoidectomy S/P CABG x 2 History of cardiac radiofrequency ablation S/P ablation of atrial fibrillation Family History: Father CAD (coronary artery disease) Grandfather Stroke Denies family history of Diabetes Clotting disorder Dementia Chronic kidney disease (CKD) Suicide Anesthesia complication Bleeding disorder Lung disease Cancer Social History: Smoking and tobacco/nicotine status: former use of tobacco/nicotine Quit status (tobacco/nicotine): has quit using Year quit tobacco: quit 50 years ago Alcohol intake: never Substance/Drug Use: never Current Complaints / Review of Systems: . Vital Signs: Performed on 02/24/2024 8:43 AM BMI - 28.123 kg/m2 (high), Height - 75 in, Weight - 225 lbs, Temperature - 97.9 f, Pulse - 76 /min, Respiration - 18 /min, O2 Sat - 98 %, Pain - 0, Fatigue - 0 and BP - 163/ 101 mm(hg)(high). Physical Exam: General Patient is in no apparent distress. Patient is younger appearing than his 83 years of age. He is alone today. HEENT: Normocephalic atraumatic. Pupils are equal, sclera clear, extraocular muscles intact. Skin: Warm and dry. The area along the left scalp just at the hairline appears to be nicely healed. There is still a raised rough area located there and a matching area in the hairline on the right side. He has no abnormalities over the rest of his cheeks and forehead. He did cut his nose today shaving and it there is a little crusted blood on the left nares. Pulmonary: Respiratory rate is regular nonlabored Cardiovascular: Regular rate and rhythm Abdomen: Abdomen is flat with minimal adipose tissue Extremities: Without significant edema or lymphedema Neurological: Alert and orient x 3. Gait and speech within normal limits. 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 We discussed the PET scan that he had. He is already met with Dr. Berkowitz in medical oncology. We talked about how we can use the radiation with a short low-dose course to prevent any growth or recurrence in the area. We talked about the simulation process. We reviewed the risks and side effects both acute and long-term. At this point he had no additional questions. He will be meeting with Dr. Landeros later this morning. He is also going to meet with his primary care physician next week and after that he will call to set up a simulation. I reviewed with him that once he had completed the treatment he would need to follow-up with Dr. Berkowitz on a regular basis. He was given an appointment card with the phone number so they can call once he is ready to start the treatment process. Signed by: 02/24/2024 9:08:06 AM <<Signature on File>> Time spent with patient:35 CPT Code: CPT Code:
== END 2024-03-19 23:59 | disposition home or self-care (01) ==
PROVIDERS: Absent Provider Radiology Radiation Oncology; PCP Family Medicine; Visit Provider Internal Medicine Medical Oncology
DX: C86.60 Primary cutaneous CD30-positive T-cell proliferations not having achieved remission (principal); Z87.891 Personal history of nicotine dependence; D48.5 Neoplasm of uncertain behavior of skin; L72.0 Epidermal cyst; L82.1 Other seborrheic keratosis; L73.8 Other specified follicular disorders; L81.4 Other melanin hyperpigmentation; L57.0 Actinic keratosis
CPT/HCPCS: 11102; 17000; 99204; 99205; 99214

== ENCOUNTER → 2024-03-24 13:45 | Outpatient (BNVA) | payer MEDICARE, SELFPAY | PROVIDERS: PCP Family Medicine; Visit Provider Dermatology | DX: C84.70 Anaplastic large cell lymphoma, ALK-negative, unspecified site (principal); D48.5 Neoplasm of uncertain behavior of skin | CPT/HCPCS: 11443; 13132 ==

== ENCOUNTER → 2024-04-09 10:16 | Outpatient (BNVA) | payer MEDICARE, SELFPAY | PROVIDERS: PCP Family Medicine; Visit Provider Student in an Organized Health Care Education/Training Program | DX: K63.89 Other specified diseases of intestine (principal); C85.90 Non-Hodgkin lymphoma, unspecified, unspecified site; Z12.11 Encounter for screening for malignant neoplasm of colon | CPT/HCPCS: 99204 ==

== ENCOUNTER 2024-04-27 06:21 | Day surgery (SDC) | payer MEDICARE, SELFPAY ==
[2024-04-27 06:35] VITALS: BP 138/100; PULSE 81; RESP 18; TEMP 36.4; O2SAT 95; BMI 28.2
[2024-04-27] MEDS: sodium chloride 0.9% 1,000 ML 30 ML IV (06:43)
--- NOTE | 2024-04-27 06:52 | ANES.PREANE2 ---
Pre-Anesthetic Assessment Height/Weight: Height 1.91 m Weight 102.512 kg Temp Pulse Resp BP Pulse Ox O2 Del Method 97.6 F 81 18 138/100 95 Room Air 04/27/24 06:35 04/27/24 06:35 04/27/24 06:35 04/27/24 06:35 04/27/24 06:35 04/27/24 06:35 Operation Date: 04/27/24 07:30 Proposed Procedures p Colonoscopy 67408 G0105 Z12.11 K63.89(Not Applicable) - Sung Forte MD Familial anesthetic complications: none Was Beta Sharron taken within 24 hours: Yes Was Clonidine taken within 24 hours: N/A Last intake: Intake Last Liquid Date 04/26/24 Last Liquid Time 21:00 Last Solid Date 04/25/24 Last Solid Time 18:00 Social No alcohol and No tobacco Exam alert, oriented x 3, clear to auscultation bilaterally and regular rate & rhythm Airway Submandibular: within normal limits Cervical ROM: within normal limits Mallampati: Class II Dentition: full History/ROS No significant history except as noted and No significant complaints Pulmonary None reported CV/HEM Atrial Fibrillation and Coronary Artery Disease None reported Hepatic None reported GI None reported Metabolic None reported Musc/skel None reported Neuropsych None reported Anesthetic Plan ASA status: 3 Anesthesia: MAC Risk of > 500 ml blood loss (7ml/kg in children): No Medications/Allergies Home Medications ?Medication ?Instructions ?Recorded ?Confirmed ?Last Taken ?Type polyethylene glycol 3350 17 gram 17 g PO DAILY 14 days #14 ea 09/22/21 04/22/24 Unknown Rx oral powder packet (Miralax) warfarin 2 mg tablet 2 mg PO .COMPLEX #60 tabs 01/01/24 04/22/24 04/21/24 Rx warfarin 2 mg tablet 2 mg PO .qod 01/28/24 04/22/24 04/21/24 History warfarin 3 mg tablet 3 mg PO .qod 01/28/24 04/22/24 04/21/24 History sotalol 80 mg tablet 40 mg (1/2 x 80 mg) PO DAILY #90 04/01/24 04/22/24 04/27/24 Rx tabs pantoprazole 40 mg tablet,delayed 40 mg PO DAILY 04/22/24 04/22/24 04/20/24 History release Allergies Allergy/AdvReac Type Severity Reaction Status Date / Time Penicillins Allergy Severe unknown Verified 04/22/24 08:25 Current Medications Generic Name Dose Route Start Last Admin Trade Name Sherita PRN Reason Stop Dose Admin Sodium Chloride 1,000 mls @ 30 mls/hr 04/27/24 06:45 04/27/24 06:43 Sodium Chloride 0.9% IV 30 mls/hr .Q24H DELANEY Administration PFSH Anesthesia Medical History Chest pain History of prostate cancer Atrial fibrillation Dyslipidemia Patient is on oral statin. Seems to be tolerating the medication so far well. Surgical History History of prostate surgery Hx of cataract extraction History of tonsillectomy and adenoidectomy S/P CABG x 2 History of cardiac radiofrequency ablation S/P ablation of atrial fibrillation Family History Father CAD (coronary artery disease) Grandfather Stroke Denies family history of Diabetes Clotting disorder Dementia Chronic kidney disease (CKD) Suicide Anesthesia complication Bleeding disorder Lung disease Cancer Social History Smoking and tobacco/nicotine status: former use of tobacco/nicotine Quit status (tobacco/nicotine): has quit using Year quit tobacco: quit 50 years ago Alcohol intake: never Substance/Drug Use: never Data Anesthesia Cardiac Studies: Echocardiogram Ultrasound 12/04/19
--- NOTE | 2024-04-27 06:57 | W.PM.OPSUD ---
Surgery/Procedure H&P Update DATE OF PROCEDURE: April 27, 2024 DATE H&P PERFORMED: 04/09/24 H&P UPDATE INFORMATION: I have reviewed H&P completed within last 30 days, I have examined patient prior to procedure and No changes to prior documentation CHANGES TO PREVIOUS DOCUMENTATION: Risks and benefits discussed PLANNED PROCEDURE: Operation Date: 04/27/24 07:30 Proposed Procedures p Colonoscopy [id number] G0105 Z12.11 K63.89(Not Applicable) - Sung Forte MD
[2024-04-27 08:00] VITALS: BP 118/78; PULSE 60; RESP 18; TEMP 36.5; O2SAT 92
[2024-04-27 08:08] VITALS: BP 133/87; PULSE 62; RESP 18; TEMP 36.4; O2SAT 96
--- NOTE | 2024-04-27 08:50 | ANE.PACU2 ---
Inpatient post-anesthesia follow up: Airway intact: Yes Vital signs: Temperature 97.6 F Pulse Rate 62 Respiratory Rate 18 Blood Pressure 133/87 Pulse Oximetry 96 Oxygen Delivery Me thod Room Air Oxygen Flow Rate Fraction of Inspir ed Oxygen Hydration adequate: Yes Nausea and vomiting: No Pain level: 1 Mental status: Baseline
== END 2024-04-27 08:52 | disposition home or self-care (01) ==
PROVIDERS: PCP Family Medicine; Visit Provider Student in an Organized Health Care Education/Training Program
PROC: 0DJD8ZZ Inspection of Lower Intestinal Tract, Via Natural or Artificial Opening Endoscopic (ICD-10-PCS; CPT 45378; principal; 2024-04-27 07:30)
DX: D12.0 Benign neoplasm of cecum (principal); K62.1 Rectal polyp; I48.91 Unspecified atrial fibrillation; E78.5 Hyperlipidemia, unspecified; I25.10 Atherosclerotic heart disease of native coronary artery without angina pectoris; Z79.01 Long term (current) use of anticoagulants; Z79.899 Other long term (current) drug therapy; Z88.0 Allergy status to penicillin; Z85.46 Personal history of malignant neoplasm of prostate; Z87.891 Personal history of nicotine dependence
CPT/HCPCS: 45380; 45381; 45385; 88305; J2704; J7030

== ENCOUNTER → 2024-05-10 13:10 | Outpatient (BNVA) | payer MEDICARE, SELFPAY | PROVIDERS: PCP Family Medicine; Visit Provider Student in an Organized Health Care Education/Training Program | DX: Z09 Encounter for follow-up examination after completed treatment for conditions other than malignant neoplasm (principal) | CPT/HCPCS: 99213 ==

== ENCOUNTER → 2024-06-22 08:53 | Outpatient (BNVA) | payer MEDICARE, SELFPAY | PROVIDERS: PCP Family Medicine; Visit Provider Family Medicine | DX: I48.91 Unspecified atrial fibrillation (principal) | CPT/HCPCS: 85610 ==

== ENCOUNTER → 2024-07-07 09:03 | Outpatient (BNVA) | payer MEDICARE, SELFPAY | PROVIDERS: PCP Family Medicine; Visit Provider Family Medicine | DX: I48.91 Unspecified atrial fibrillation (principal); Z85.038 Personal history of other malignant neoplasm of large intestine; I25.10 Atherosclerotic heart disease of native coronary artery without angina pectoris; C44.42 Squamous cell carcinoma of skin of scalp and neck | CPT/HCPCS: 80053; 85025; 85610; 88305 ==

== ENCOUNTER → 2024-08-02 15:10 | Outpatient (BNVA) | payer MEDICARE, SELFPAY | PROVIDERS: PCP Family Medicine; Visit Provider Family Medicine | DX: I48.91 Unspecified atrial fibrillation (principal); I25.10 Atherosclerotic heart disease of native coronary artery without angina pectoris; Z85.038 Personal history of other malignant neoplasm of large intestine | CPT/HCPCS: 85610 ==

== ENCOUNTER → 2024-09-23 09:39 | Outpatient (BNVA) | payer MEDICARE, SELFPAY | PROVIDERS: PCP Family Medicine; Visit Provider Family Medicine | DX: I48.91 Unspecified atrial fibrillation (principal) | CPT/HCPCS: 85610 ==

== ENCOUNTER → 2024-11-08 08:55 | Outpatient (BNVA) | payer MEDICARE, SELFPAY | PROVIDERS: PCP Family Medicine; Visit Provider Family Medicine | DX: Z79.01 Long term (current) use of anticoagulants (principal) | CPT/HCPCS: 85610 ==

== ENCOUNTER → 2025-02-01 08:28 | Outpatient (BNVA) | payer MEDICARE, SELFPAY | PROVIDERS: PCP Family Medicine; Visit Provider Family Medicine | DX: I35.0 Nonrheumatic aortic (valve) stenosis (principal); I48.91 Unspecified atrial fibrillation; E78.5 Hyperlipidemia, unspecified; I25.10 Atherosclerotic heart disease of native coronary artery without angina pectoris | CPT/HCPCS: 80053; 80061; 85025; 85610 ==